=== PATIENT | female | born 1950 | race Caucasian/White ===

== ENCOUNTER 2017-06-19 23:55 | Emergency (ER) | payer BC, MEDICARE ==
[2017-06-20] MEDS ORDERED: Ketorolac Tromethamine 30 MG/ML VIAL ONE (00:17)
[2017-06-20] MEDS ORDERED: Fentanyl 100 MCG/2 ML VIAL ONE (00:17)
[2017-06-20] MEDS ORDERED: methylPREDNISolone Sod Succ/PF 125 MG/2 ML VIAL ONE (00:17)
== END 2017-06-20 02:20 | disposition home or self-care (01) ==
LOC: SCSER 23:55
DX: M54.42 Lumbago with sciatica, left side (principal); E66.9 Obesity, unspecified; E21.3 Hyperparathyroidism, unspecified; I10 Essential (primary) hypertension; Z85.3 Personal history of malignant neoplasm of breast
CPT/HCPCS: 96372; J1885; J2930; J3010

== ENCOUNTER 2017-07-12 14:39 | Outpatient (CLI) | payer MEDICARE, BC ==
--- NOTE | 2017-07-12 16:17 | MRI ---
MR OF THE LUMBAR SPINE WITHOUT CONTRAST 07/12/17 INDICATION: Extreme low back pain with radiation down the left leg since [place]. COMPARISON: None. FINDINGS: Bone marrow signal intensity is within normal limits. The conus is seen to terminate at L1. At L5-S1, there is an asymmetric to the left broad based disc bulge. There is facet joint degenerativ e change and loss of the disc space height inducing mild left neural foraminal narrowing. At L4-5, there is a broad based bulge with facet hypertrophy causing mild bilateral neural foraminal narrowing. At L3-4, there is a right paracentral cephalad extending disc extrusion measuring 1.9 cm on image 14 of series 5 causing mild ventral and right ventral lateral effacement of the thecal sac without defin ite nerve compression. This is superimposed on a broad based bulge causing mild neural foraminal encr oachment. At the L2-3 level, there is a broad based bulge with facet hypertrophy without appreciable central ca nal or neural foraminal narrowing. At L1-2, there is a mild broad based bulge without appreciable central canal or neural foraminal kavya rowing. At T12-L1, there is no appreciable central canal or neural foraminal narrowing. IMPRESSION: 1. Right cephalad extending paracentral disc extrusion at L3-4 causing mild effacement of the ve ntral and right ventral lateral thecal sac without definite cord compression. 2. Multilevel spondylosis of the lumbar spine with mild neural foraminal narrowing as detailed a jessica. POS: [facility]
== END 2017-07-12 14:40 | disposition home or self-care (01) ==
LOC: SCSMRI 14:39
PROVIDERS: ATTEND Specialist
DX: M54.42 Lumbago with sciatica, left side (principal); M54.41 Lumbago with sciatica, right side; M43.16 Spondylolisthesis, lumbar region; M99.83 Other biomechanical lesions of lumbar region; M51.26 Other intervertebral disc displacement, lumbar region
CPT/HCPCS: 72148

== ENCOUNTER 2018-03-14 13:32 | Outpatient (CLI) | payer MEDICARE, BC ==
--- NOTE | 2018-03-14 15:44 | RAD ---
FOUR VIEWS LUMBAR SPINE: History: Back pain. M54.16 FINDINGS: AP, lateral, flexion and extension views of the lumbar spine obtained. Images demonstrate levoscoliosis centered at the L2 level. Disc space height loss is seen at L3-4 and L4-5 levels. No evidence of acute fractures or bony lesions seen. IMPRESSION: Levoscoliosis with L3-4 and L4-5 changes of spondylosis. POS: [facility]
--- NOTE | 2018-03-14 16:04 | MRI ---
MRI OF LUMBAR SPINE WITHOUT CONTRAST: 03/14/18 INDICATION: History of low back pain, M54.16. COMPARISON: Prior MR of lumbar spine dated 07/12/17. TECHNIQUE: Multiple planar and multisequence MR images were obtained of the lumbar spine without contrast. FINDINGS: At L5-S1, there is an asymmetric to the left broad based disc osteophyte complex and facet joint dege nerative changes inducing mild left neural foraminal narrowing. This is stable to the prior exam. At L4-5, there is a broad based disc osteophyte complex and facet joint degenerative change and loss of disc space height inducting mild encroachment on the neural foramina but without definite impingem ent. At L3-4 level, there is a broad based bulge. Previously seen right paracentral cephalad extending dis c extrusion has been partially resorbed. Small central protrusion remains causing mild effacement of the ventral subarachnoid space. Mild neural foraminal narrowing appears similar appearing. At L2-3, there is no appreciable central canal or neural foraminal narrowing. At L1-2, there is a mild broad based bulge without appreciable central canal or neural foraminal narr owing. At T12-L1, there is no appreciable central canal or neural foraminal narrowing. IMPRESSION: 1. Interval resorption of the right paracentral cephalad extending disc extrusion. Mild residual disc protrusion remains causing mild effacement of the subarachnoid space. 2. Mild neural foraminal narrowing at L3-4 through L4-5 appears stable. POS: [facility]
== END 2018-03-14 13:33 | disposition home or self-care (01) ==
LOC: SCSMRI 13:32
PROVIDERS: ATTEND Surgery
DX: M47.26 Other spondylosis with radiculopathy, lumbar region (principal); M51.16 Intervertebral disc disorders with radiculopathy, lumbar region; M41.9 Scoliosis, unspecified; M99.83 Other biomechanical lesions of lumbar region
CPT/HCPCS: 72120; 72148

== ENCOUNTER 2018-06-01 14:39 | Outpatient (CLI) | payer MEDICARE, BC ==
--- NOTE | 2018-06-01 19:01 | MRI ---
CERVICAL SPINE MRI WITHOUT CONTRAST 06/01/18 COMPARISON: None. HISTORY: Chronic neck pain, right shoulder pain. TECHNIQUE: Multiplanar and multisequence MR imaging of the cervical spine provided without contrast. FINDINGS: The sagittal STIR imaging demonstrates no focal area of osseous marrow edema. There is straightening of the normal cervical lordosis. The craniocervical junction appears intact. There is mild degenerative change at the atlantoaxial int erspace. C2-3: No central canal or neural foraminal stenosis. C3-4: Mild disc bulge. No significant central canal stenosis. There is uncovertebral osteophyte formation on the right with no significant neural foraminal stenosi s. C4-5: Disc space narrowing and disc desiccation and minimal disc bulge. Mild central canal stenosis. Mild bilateral facet hypertrophy with no significant neural foraminal stenosis on either side. C5-6: Disc space narrowing and disc desiccation. Mild disc bulge with partial effacement of the ventr al thecal sac and mild central canal stenosis. Anterior osteophyte formation noted. Bilateral facet and uncovertebral osteophyte formation, left greater than right. Moderate left and mi ld right neural foraminal stenosis. C6-7: Disc desiccation and mild disc bulge. No central canal stenosis. No significant neural foramina l stenosis on either side. Mild bilateral facet hypertrophy. T7-T1: Intervertebral disc height and signal intensity grossly unremarkable. No significant central c anal or neural foraminal stenosis. No focal area of abnormal signal intensity is identified within the cervical cord. IMPRESSION: Multilevel degenerative change of the cervical spine as detailed above. POS: [facility]
--- NOTE | 2018-06-04 09:05 | MRI ---
MRI RIGHT SHOULDER PERFORMED WITHOUT CONTRAST ENHANCEMENT: History: Patient fell four weeks ago and again two weeks ago, right shoulder pain. FINDINGS: Exam quality is limited due to body habitus and motion. There is a full thickness partial width supraspinatus tendon tear. The tear is retracted by approxima tely 11 mm. The AP dimension of the full thickness component of this tear is approximately retracted by as much as 17 mm. The infraspinatus tendon may have a small component of an undersurface tear invo lving its more superior fibers. The subscapularis tendon shows tendonopathy changes. The biceps tendon is normal in position within t he bicipital groove. Due to motion, labrum is difficult to assess. Inferior glenohumeral ligament is intact. AC joint shows arthritic change. IMPRESSION: Full thickness partial width supraspinatus tendon tear. No significant rotator cuff muscle atrophy no toribio. POS: [facility]
== END 2018-06-01 14:40 | disposition home or self-care (01) ==
LOC: SCSMRI 14:39
PROVIDERS: ATTEND Surgery
DX: M54.2 Cervicalgia (principal); M25.511 Pain in right shoulder; M47.812 Spondylosis without myelopathy or radiculopathy, cervical region
CPT/HCPCS: 72141

== ENCOUNTER 2019-04-09 15:42 | Inpatient (IN) | payer MEDICARE, BC ==
[~2019-04-09 15:42] MED LIST: Iopamidol-370 76% 500 ML 1 ML ONE
[2019-04-09 16:47] LABS: Hemoglobin 13.4 g/dL (12.0-16.0); Mean Corpuscular HGB CONC 32.9 g/dL (32.0-36.0); Mean Corpuscular Hemoglobin 29.6 pg (27.0-31.0); Mean Corpuscular Volume 89.8 fL (78.0-98.0); Mean Platelet Volume 8.2 fL (7.4-10.4); Platelet Count 180 thou/uL (130-400); RBC Distribution Width 13.5 % (11.5-14.5); Red Blood Cell (RBC) Count 4.52 mill/uL (4.20-5.40); White Blood Cell (WBC) Count 32.5 thou/uL (4.8-10.8)
[2019-04-09 16:52] LABS: INR-International Normal Ratio 1.2; PTT 45.4 SEC (22.9-36.1); Prothrombin Time 15.6 SEC (12.0-14.7)
[2019-04-09 17:09] LABS: Band 29 % (5-11); Lymphocytes 5 % (21-51); MDiff Complete? YES; Monocytes 4 % (0-10); Neutrophil 62 % (42-75); Platelet Morphology Comment Appears Adequate; RBC Morphology Normal; Vacuoles SLIGHT
[2019-04-09] MEDS ORDERED: HYDROcodone/Acetaminophen 7.5/325 mg Tablet ONE (17:10)
[2019-04-09 17:13] LABS: ALT (SGPT) 23 U/L (8-55); AST (SGOT) 25 U/L (5-34); Albumin 3.7 g/dL (3.4-4.8); Alkaline Phosphatase 81 U/L (40-110); Anion Gap 15 mmol/L (10-20); BUN (Urea Nitrogen) 26 mg/dL (9.8-20.1); Bilirubin, Total 0.5 mg/dL (0.2-1.2); Calc. Creatinine Clearance 0 mL/min (70-130); Carbon Dioxide 24 mmol/L (23-31); Chloride 101 mmol/L (98-107); Estimated GFR-MDRD 42; Globulin 2.7 g/dL (2.4-3.5); Glucose 112 mg/dL (80-115); Potassium 4.1 mmol/L (3.5-5.1); Protein, Total 6.4 g/dL (6.0-8.3); Sodium 136 mmol/L (136-145)
[2019-04-09 17:21] LABS: Bacteria/HPF 3+ HPF (None Seen); Bilirubin Negative (Negative); Blood, Urine Negative (Negative); Clarity Turbid (Clear); Glucose, Urine (Dipstick) Normal (Negative); Leukocyte 500 Leu/uL (Negative); Nitrite Negative (Negative); Protein, Urine (Dipstick) 30 mg/dL (Neg-Trace); Renal Epithelial 0-3 HPF (None Seen); WBC/HPF 21-50 HPF (0-3)
--- NOTE | 2019-04-09 17:30 | ULT ---
ULTRASOUND DOPPLER DUPLEX VENOUS RIGHT LOWER EXTREMITY: DATE: 04/09/2019 HISTORY: 68-year-old female with right lower extremity edema. TECHNIQUE: Grayscale, color-flow, and spectral analysis, of major veins of right lower extremity. FINDINGS: There is demonstration of blood flow with normal compressibility, of the right common femoral, profun da femoral, greater saphenous, femoral, popliteal, and posterior tibial, veins. There is edema in the superficial soft tissues of the right lower extremity, especially at the calf. There are enlarged lymph nodes in the right groin. IMPRESSION: 1. No deep venous thrombosis of right lower extremity. 2. Right leg soft tissue edema. 3. Right groin lymphadenopathy.
[2019-04-09 18:23] LABS: CKMB 3.1 ng/mL (0-6.6)
[2019-04-09] MEDS ORDERED: cefTRIAXone\\ROCEPHIN 2 GM VIAL ONE (18:23)
[2019-04-09] MEDS ORDERED: Aspirin Chewable 81 MG TAB ONE ×2 (18:23)
--- NOTE | 2019-04-09 18:28 | CT ---
CT ANGIOGRAM THORAX WITH CONTRAST: (CTA pulmonary angiogram) DATE: 04/09/2019 HISTORY: 68 year old female with chest pain TECHNIQUE: IV injection of iodinated contrast. Scan acquisition timing attempted to coincide with iodinated contrast bolus reaching maximal density in pulmonary arteries. 3-D MIP reconstructions. FINDINGS: Pulmonary thromboembolism: None. Lungs: No consolidation or edema. Pneumothorax: None. Pleural effusion: None. 6 mm calculus in left kidney. Kidneys incompletely imaged. High density material in gallbladder, either vicarious excretion of IV contrast or high density sludg e. Thoracic aorta: No aneurysm or dissection. Coronary arteries: High density material representing calcification or stent throughout LAD. Calcific ations of LCx and RCA. IMPRESSION: 1. No pulmonary thromboembolism. 2. Coronary atherosclerosis due to calcified coronary lesion.
[2019-04-09] MEDS ORDERED: Vancomycin HCl 1.25 GM in Sodium Chloride 0.9% 250 ML 250 ML IVPB ONE (19:30)
[2019-04-09 20:50] LABS: Critical Call Chem Troponin I RESULT DECREASING; Troponin I 0.324 ng/mL (< 0.028)
[2019-04-09 21:10] VITALS: BMI 38.7
--- NOTE | 2019-04-09 21:17 | HP ---
PRESENTING COMPLAINT: Weakness and chills. HISTORY OF PRESENT ILLNESS: Ms. Monika Keen is a 68-year-old female with past medical history of hypertension, previous recurrent UTIs, history of renal calculus in the past but with no previous intervention, who developed weakness, chills, but no mention of fever, exertional fatigue/shortness of breath since the last 3 days, which has been gradually worsening. She also has been having right lower quadrant abdominal pain. She was evaluated in an outside facility emergency room yesterday for the abdominal pain. She had a CT of the abdomen done with reported finding of a 2 cm right kidney mass. She was referred to Urology, which she is yet to see, and discharged home. She admits to worsening generalized weakness and fever, as well as new rash over the right lower extremity, hence presentation to the ER today. She admits to history of previous superficial DVT, for which she was on anticoagulation for about a year over 10 years ago. She admits to chronic low back pain. She states her pain now seems to be more over the right flank. She denies any nausea or vomiting. She admits to difficulty with ambulation and even ability to transfer herself independently. She denies any hematuria. She admits to foul smelling urine but no dysuria. PAST MEDICAL HISTORY: Significant for: 1. Right breast cancer with carcinoma in situ, status post lumpectomy and radiation therapy about 17 years ago. 2. Hypertension. 3. Obesity. 4. History of nephrolithiasis. 5. Prior history of recurrent UTI but not since over the last many years. 6. Self-reported history of intermittent palpitation. Spouse states she was diagnosed with intermittent fibrillation but never placed on anticoagulation. 7. History of superficial DVT, for which she was on one year of anticoagulation 7 years ago. 8. History of chronic back pain with lumbar degenerative disease. PAST SURGICAL HISTORY: Looks like breast lumpectomy. SOCIAL HISTORY: The patient resides in the community with spouse. No history of tobacco, alcohol, or illicit drug use. FAMILY HISTORY: Significant for mother with breast cancer, father with skin cancer but no history of coronary artery disease or kidney cancer. ALLERGIES: INCLUDE LATEX, MORPHINE, SULFA. HOME MEDICATIONS: Include: 1. Verapamil. 2. Aspirin. 3. Losartan. 4. Bisoprolol. 5. Tylenol. 6. Benadryl. 7. Hydrocodone. 8. [place]. REVIEW OF SYSTEMS: All system review x14 was negative except as mentioned above. PHYSICAL EXAMINATION: CURRENT VITAL SIGNS: Blood pressure of 111/63, pulse of 90, respiratory rate of 18, O2 saturation is 97% on room air. Temperature afebrile. GENERAL: Obese middle-aged female, appears older than stated age, lying in bed, not in any respiratory distress. HEAD: Atraumatic, normocephalic. Pupils equal, reactive to light. Dry oral mucosa with no mucosal patches noted. NECK: No JVD. No carotid bruit. RESPIRATORY: Good air entry bilaterally. No crepitations. No chest wall tenderness. CARDIOVASCULAR: S1, S2. Rate and rhythm regular. GI: Abdomen, markedly obese but nondistended. Tenderness over the right lower quadrant beneath the abdominal fold. No inguinal area tenderness. Mild right costovertebral tenderness noted. No suprapubic fullness. No palpable masses noted. EXTREMITIES: Trace pedal edema bilaterally but notable mild erythema extending from the mid nichols of the right lower extremity down to just above ankle area. NEUROLOGIC: The patient is alert, oriented. Cranial nerves 2 through 12 grossly intact. LABORATORY DATA: WBC 32,000, hemoglobin 13, platelet 118, neutrophils 52% with 29% bands. INR 1.2, PTT 45. Sodium 136, potassium 4.1. Troponin 0.4. BNP 411. Albumin 3.7, creatinine 1.3, BUN 26. Urinalysis shows 500 leukocyte esterase, 21-50 wbc's, 3+ bacteria. CTA shows no evidence of pulmonary embolism, 6 mm calculus of the left kidney. Rest of the kidney not able to be imaged on the view. Ultrasound of the right lower extremities shows no evidence of DVT but notable tissue edema. EKG showed normal sinus rhythm, no ST-segment changes. IMPRESSION: 1. Urinary tract infection. 2. Right lower extremity cellulitis. 3. Elevated troponin/demand-mediated ischemia. 4. Reported right renal mass. 5. Hypertension. 6. Obesity. 7. Functional debility. PLAN: 1. Urinary tract infection with marked leukocytosis, possibility of right perinephric abscess/pyelonephritis considered given marked leukocytosis. We will obtain further imaging of the kidney; unable to obtain previous. We will try to obtain a CAT scan from outlying facility. If unable, the patient may benefit from MRI of the kidneys to further rule out reported kidney mass. We will obtain urine culture. We will start the patient on empiric Levaquin coverage for now. We will consult Urology. 2. Acute renal failure, likely due to dehydration versus recent contrast exposure. We will do gentle IV fluid hydration. Follow urine electrolytes and creatinine. Follow daily BMP. We will also obtain renal consult. 3. Elevated troponin, may be due to demand-mediated ischemia given absence of chest pain as well as no EKG changes. We will obtain serial cardiac enzymes and follow. Continue beta hari, low-dose heparin for now. If worsening troponin, then we transfer to cardiac floor and consider Cardiology consult as well as a stress test. 4. Hypertension. Hold losartan for now. Continue beta hari. We will do IV hydralazine p.r.n. 5. Right lower extremity cellulitis. Follow blood culture. We will start the patient on empiric vancomycin; Pharmacy to dose. No discernible abscess to drain at this time. 6. DVT prophylaxis with subcutaneous heparin. 7. Advanced directive, the patient is full code. Total time spent in review of record, discussion with patient, counseling, as well as explanation of possible test is greater than 70 minutes. The patient and family explained in detail about the plan of care. Job ID: [id number]
[2019-04-09] MEDS ORDERED: Acetaminophen 325 MG TAB PO PRN (22:03)
[2019-04-09] MEDS ORDERED: Aspirin 81 mg Enteric Coated Tablet PO SCH (22:03)
[2019-04-09] MEDS ORDERED: hydrALAZINE 20 MG/ML VIAL SLOW IVP PRN (22:03)
[2019-04-09] MEDS ORDERED: Sodium Chloride 0.9% 1,000 ML IV SCH (22:03)
[2019-04-09 22:38] LABS: Calc. Creatinine Clearance 203 mL/min (70-130); Estimated GFR-MDRD Greater than 90
[2019-04-09] MEDS: HYDROcodone/Acetaminophen 5/325 mg Tablet PO PRN (22:39)
[2019-04-09 22:57] LABS: CKMB 0.9 ng/mL (0-6.6)
[2019-04-09] MEDS ORDERED: Diazepam 5 MG TAB PO SCH (23:15)
[2019-04-09] MEDS ORDERED: Lisinopril 20 MG TAB PO SCH (23:15)
[2019-04-10] MEDS: HYDROcodone/Acetaminophen 5/325 mg Tablet PO PRN ×6 (02:07→22:56)
[2019-04-10] MEDS: Ondansetron PF 4 MG/2 ML Vial IVP PRN ×3 (02:12→22:51)
[2019-04-10 03:26] LABS: Creatinine, Urine 105.11 mg/dL (47-110); Sodium, Urine Less than 20 mmol/L (Not Available)
[2019-04-10 05:31] LABS: Anion Gap 9 mmol/L (10-20); BUN (Urea Nitrogen) 23 mg/dL (9.8-20.1); Calc. Creatinine Clearance 116 mL/min (70-130); Calcium 7.7 mg/dL (7.8-10.44); Carbon Dioxide 24 mmol/L (23-31); Chloride 108 mmol/L (98-107); Estimated GFR-MDRD 84; Glucose 101 mg/dL (80-115); Magnesium 1.9 mg/dL (1.6-2.6); Potassium 3.3 mmol/L (3.5-5.1); Sodium 138 mmol/L (136-145)
[2019-04-10 05:33] LABS: Band 7 % (5-11); Hemoglobin 11.6 g/dL (12.0-16.0); Hypochromia SLIGHT = 6-15 cells (100X) (0-5/hpf); Lymphocytes 8 % (21-51); MDiff Complete? YES; Mean Corpuscular Hemoglobin 29.9 pg (27.0-31.0); Mean Corpuscular Volume 90.6 fL (78.0-98.0); Mean Platelet Volume 7.9 fL (7.4-10.4); Monocytes 4 % (0-10); Neutrophil 81 % (42-75); Platelet Count 176 thou/uL (130-400); Platelet Morphology Comment Appears Adequate; RBC Distribution Width 13.6 % (11.5-14.5); Red Blood Cell (RBC) Count 3.89 mill/uL (4.20-5.40); White Blood Cell (WBC) Count 18.5 thou/uL (4.8-10.8)
[2019-04-10] MEDS ORDERED: Potassium Chloride 20 MEQ TAB PO SCH (07:00)
[2019-04-10] MEDS ORDERED: Famotidine 20 MG TAB PO SCH (09:00)
[2019-04-10] MEDS ORDERED: Heparin 5,000 UNITS/ML VIAL SC SCH (09:00)
[2019-04-10] MEDS ORDERED: Aspirin 325 MG TAB PO SCH (09:00)
[2019-04-10] MEDS ORDERED: Aspirin 81 mg Enteric Coated Tablet PO SCH ×2 (09:00→16:45)
[2019-04-10] MEDS ORDERED: Prevnar 13-Val Conj/PF 0.5 ML SYRINGE IM ONE (09:00)
[2019-04-10] MEDS ORDERED: Acetylcysteine 20% 200 MG/ML 30 ML VIAL PO SCH (09:00)
--- NOTE | 2019-04-10 09:02 | CT ---
ABDOMEN CT WITH AND WITHOUT CONTRAST PELVIC CT WITH AND WITHOUT CONTRAST: COMPARISON: 04/08/2019, [facility]. TECHNIQUE: Abdomen and pelvic CT performed with and without IV contrast. Coronal reformatted images and sagittal reformatted images are submitted for interpretation. HISTORY: Evaluate for right renal mass versus abscess. The patient has cellulitis. FINDINGS: Abdomen CT: Lung bases: Chronic changes. Heart: Normal heart size. No significant pericardial fluid. Aorta: Atherosclerosis. Abdomen: Solid organs: Appropriate enhancement of the liver, spleen, pancreas and adrenal glands. Gallbladder: Unremarkable. Lymph nodes: No gastrohepatic, retrocrural or periportal lymphadenopathy. No mesenteric lymphadenopat hy. Mesentery: No mass, free air or free fluid. Anterior abdominal wall: Small abdominal wall hernia containing mesenteric fat. Alimentary canal: No evidence of bowel obstruction. Unremarkable ileocecal junction. Appendix is diff icult to appreciate. Nevertheless, no inflammation of the cecal apex. Diverticulosis in the left hemicolon. No diverticulitis. Kidneys: Noncontrast: There is minimal bilateral perinephric fat stranding. Bilateral nonobstructing intrarenal calculi. Arterial phase: Symmetric enhancement of the kidneys. There is a peripherally enhancing centrally hyp odense mass in the right lower pole pelvis. Delayed images: The mass has some filling of enhancement. On the delayed images, there is nearly homo geneous enhancement. Mass measures 2.1 x 2.1 x 2.0 cm. Additional smaller subcentimeter hypodensities are noted in the left and right renal cortex. No evidence of obstructive uropathy. Pelvic CT: Unremarkable urinary bladder. Surgically absent uterus. No pelvic mass, lymphadenopathy, f ree air or free fluid No lytic or blastic lesions in the osseous structures. IMPRESSION: Enhancing mass noted in the lower pole of the right kidney with filling in of enhancement on the abril yed images. A cystic neoplasm is favored. Abscess is a much less favored consideration given lack of inflammatory change. Results of study conveyed to Dr. Parsons via [facility] 04/10/2019 at 9:02 AM Code CR Transcribed Date/Time: 04/10/2019 9:30 AM
[2019-04-10] MEDS: Famotidine 20 MG TAB PO SCH (09:21)
[2019-04-10] MEDS: Bisoprolol Fumarate 5 MG TAB PO SCH (09:21)
[2019-04-10] MEDS: Diazepam 5 MG TAB PO SCH ×2 (09:21→20:25)
[2019-04-10] MEDS: Sodium Chloride 0.9% 1,000 ML IV SCH ×2 (10:27→17:37)
--- NOTE | 2019-04-10 11:17 | CON ---
DATE OF CONSULTATION: 04/10/2019 REASON FOR CONSULT: Possible renal mass. HISTORY OF PRESENT ILLNESS: Ms. Keen is a 68-year-old female with past medical history of hypertension, history of renal lithiasis, chronic back pain due to severe scoliosis, DJD, who presents with history of shortness of breath, fatigue, right lower extremity swelling, and generalized malaise. She has difficulty qualifying her discomfort as it is diffuse in the back due to chronic radiculopathy and scoliosis. She does not relate that there is an acute onset of right flank pain per se, however, pain in the back is somewhat diffuse and difficult to quantify. She has had no fever, however, had subjective chills with no nausea or vomiting. She denies history of gross hematuria, however, does relate foul malodorous urine, however, no dysuria. She was admitted with a white count of 32,000 and 29 bands. She has been started on Levaquin p.o. and vancomycin for right lower extremity cellulitis. As she presented with shortness of breath and swelling of her lower extremity, she was admitted to evaluate for DVT and pulmonary embolus. Workup for pulmonary embolus is negative. She apparently had a CTA of the abdomen and pelvis at [facility], which the CT demonstrated 2 cm right renal mass and was advised regarding outpatient consultation. PAST MEDICAL HISTORY: Hypertension, heart palpitations, history of breast cancer on the right in 2001, history of nephrolithiasis, obesity, history of scoliosis, chronic DJD and chronic back pain, history of superficial DVT, prior history of anticoagulation about 7 years ago per patient. PAST SURGICAL HISTORY: Lumpectomy, appendectomy in 1989, total abdominal hysterectomy in 1999. She underwent right ureteroscopy, laser lithotripsy with stent in [place] by Dr. Garcia in 2000, right lumpectomy in 2001, left retrograde stent in November 2012, left ureteroscopy, laser lithotripsy on December 2012, and subsequent stent pull on January 10, 2013. ALLERGIES: SHE IS ALLERGIC TO DULOXETINE, IBUPROFEN, LATEX, MORPHINE, NAPROXEN, HOWEVER, ABLE TO TOLERATE HYDROCODONE. REVIEW OF SYSTEMS: Ten-point review of systems as above, otherwise noncontributory. SOCIAL HISTORY: She is , at bedside. Denies tobacco abuse. PHYSICAL EXAMINATION: VITAL SIGNS: Stable at 97, 72, 18, 132/62, 93% on room air. GENERAL: The patient appears somewhat fatigued, however, cooperative to physical exam, in no acute distress. HEENT: Grossly unremarkable. HEART: Regular rate. LUNGS: Clear. ABDOMEN: Morbidly obese, protuberant. There is no gross rigidity. No rebound. No obvious CVA tenderness is appreciated. Morbidly obese abdomen. : Demonstrates no significant prolapse of concern. Atrophic vaginitis. No significant discharge appreciated. EXTREMITIES: Right lower extremity cellulitic changes of the lower extremity with lower extremity edema. No calf tenderness is appreciated. PSYCHIATRIC: Appears to be appropriate, intact. NEUROLOGIC: No gross focal deficits per se; however, her mobility is somewhat limited. PERTINENT LABORATORY AND IMAGING DATA: She was admitted with a white count of 32, hemoglobin 13, platelets 180 and 29 bands. Currently, her white count [place] antibiotic therapy [place] [id number], hemoglobin 11, platelets 176, 81 segs, resolution of bandemia. INR is 1.2, PTT is 45. Her admitting creatinine is 1.2 and is currently 0.7. Her hemoglobin A1c in December of 2016, is 5.9. UA is contaminated, 46 epithelials, 3+ bacteria, 46 rbc's, 21 to 50 wbc's, 500 leukocytes. Her prior urine culture reviewed dating back to 2012 demonstrating no significant pathogen except a beta-hemolytic Streptococcus in 2016. DIAGNOSTIC STUDIES: CT angio thorax with contrast dated 04/09, demonstrates no evidence of pulmonary embolism, evidence of coronary artery disease. Right lower extremity Doppler demonstrates no evidence of right lower extremity DVT. Lower extremity soft tissue edema and nonspecific right groin lymphadenopathy. I was able to see the CT scan with : from the [facility] 2 days ago. There are bilateral renal calculi with no evidence of hydronephrosis. There is a left 6 mm nonobstructing renal calculus. Right mid to lower pole 5 to 6 mm nonobstructing calculus. In the right mid to lower pole, there is a 1.5 x 1.4 x 2 cm renal mass. IMPRESSION: 1. Ms. Keen is a 68-year-old female with history of nephrolithiasis, prior ureteroscopy in the remote past. 2. History of hypertension. 3. Currently admitted due to right lower extremity cellulitis, responding to antibiotic regimen with improvement of leukocytosis and bandemia. 4. CT at [facility] two days ago demonstrates a renal mass. Official dictation is unable to be retrieved. Per my review, there is suspicion that this may be a renal abscess vs renal mass . followup CT for staging today ; if it is stable in size that she is responding to antibiotic regimen, it would be preferable, if there is concern regarding increased in size or interval growth. Continue vancomycin, we will transition to meropenem IV. The patient is n.p.o. until CT can be reviewed. Hold heparin, hold aspirin until CT reviewed Job ID: [id number] [facility]
[2019-04-10] MEDS ORDERED: Iopamidol-370 76% 500 ML 1 ML ONE (11:27)
[2019-04-10] MEDS: Meropenem 2 GM, Admixture Fee 1 EACH in Sodium Chloride 0.9% 100 ML IVPB SCH ×4 (11:40→20:33)
[2019-04-10] MEDS: Acetylcysteine 20% 200 MG/ML 30 ML VIAL PO SCH (11:43)
[2019-04-10] MEDS ORDERED: Polyethylene Glycol 3350 17 GM Packet PO PRN (14:53)
[2019-04-10 15:14] LABS: Creatinine, Urine 34.77 mg/dL (47-110)
--- NOTE | 2019-04-10 17:16 | CON ---
DATE OF CONSULTATION: REASON FOR CONSULTATION: Edema and proteinuria. HISTORY OF PRESENT ILLNESS: A very pleasant 68-year-old female, who presented to the hospital yesterday for weakness and chills and was noted to have a perinephric abscess. The patient does have edema and cellulitis in the lower extremities. Her creatinine was 1.2 on admission, that has improved to 0.7 today. The patient denies any headache, numbness, tingling, or weakness. Denies any nausea, vomiting, or chest pain. PAST MEDICAL HISTORY: Significant for breast cancer, hypertension, nephrolithiasis, UTI, DVT, atrial fibrillation, chronic back pain, and lumpectomy. SOCIAL HISTORY: No alcohol or drug use. FAMILY HISTORY: Negative for ESRD. ALLERGIES: REVIEWED. MEDICATIONS: Home medications list, reviewed. Hospital medications list, reviewed. REVIEW OF SYSTEMS: A 15-point review of systems was performed and was negative except for positives noted above. GENERAL: HEAD: NECK: No swelling or lumps. NOSE: No epistaxis or discharge. EYES: No diplopia or pain. RESPIRATORY: CARDIOVASCULAR: GASTROINTESTINAL: /[employer]OR: MUSCULOSKELETAL: No joint pain. NEUROPSYCHIATIC SYSTEMS: No suicidal ideation. No ideation. SKIN: Denies any rash or ulcer. CONSTITUTIONAL: No fever or chills. PHYSICAL EXAMINATION: GENERAL: The patient is awake and alert. VITAL SIGNS: Afebrile, pulse 68, breathing 16, blood pressure 132/62. GENERAL APPEARANCE AND MENTAL STATUS: Fair. HEAD/NECK: Normocephalic. Atraumatic. EYES: EOMI. No deformity. EARS: Clear. No ulcers. NOSE: Intact. No lesions. MOUTH: Clear. No discharge. THROAT: Clear. No exudate. LUNGS: Clear. No crackles. CARDIAC: S1, S2. No rub. ABDOMEN: Benign. Bowel sounds positive. GENITALIA/RECTUM: [place] absent. BACK/EXTREMITIES: Edema 0+. NEUROLOGICAL: Alert and motor intact. SKIN: LYMPHATICS: LABORATORY DATA: Reviewed. ASSESSMENT AND PLAN: 1. Acute kidney injury with chronic kidney disease, most likely due to sepsis, improved. 2. Hypertension, stable. 3. Anemia, stable. 4. Acute tubular necrosis, improved. No indication for dialysis. We will follow renal imaging. Job ID: [id number]
--- NOTE | 2019-04-10 18:09 | CON ---
DATE OF CONSULTATION: 04/10/2019 SERVICE: Nephrology. REQUESTING PHYSICIAN: Jj Son MD REASON FOR CONSULTATION: Acute kidney injury. HISTORY OF PRESENT ILLNESS: A 68-year-old female with known history of hypertension, recurrent UTI, nephrolithiasis, who was admitted due to worsening weakness and chills as well as right lower quadrant abdominal pain. The patient also reported new-onset right leg rash. On presentation to the ER, the patient was found to be febrile and further evaluation revealed features of right leg cellulitis, UTI as well as leukocytosis and tachycardia. Impression of sepsis was made and the patient was started on broad-spectrum antibiotics. The patient also was noted to have acute elevation in creatinine, necessitating Nephrology consult. The patient also had a contrast CT scan of the abdomen, hence, there is a concern for contrast-induced nephropathy. Earlier today, also, the patient had additional CT scan of the abdomen again with contrast. The patient reports some clinical improvement, but continued to have right leg pain. She denied nausea, vomiting, or change in bowel habit. PAST MEDICAL HISTORY: 1. Right breast cancer, status post lumpectomy and radiation. 2. Hypertension. 3. Obesity. 4. Nephrolithiasis. 5. Recurrent UTI. 6. Chronic back pain. PAST SURGICAL HISTORY: Lumpectomy. FAMILY HISTORY: Significant for breast cancer in mother as well as skin cancer in father. However, there is no history of coronary artery disease or kidney cancer in family. SOCIAL HISTORY: The patient lives with spouse. She smokes about a pack a day, but denied alcohol or recreational drug use. ALLERGIES: 1. DULOXETINE. 2. IBUPROFEN. 3. LATEX. 4. LEVOFLOXACIN. 5. MORPHINE. 6. NAPROSYN. 7. SULFA. MEDICATIONS: Prior to hospital, 1. Hydrocodone 5/325 q.6 p.r.n. 2. Ascorbic acid 1000 mg p.o. daily. 3. Aspirin 81 mg p.o. daily. 4. Bisoprolol 10 mg p.o. daily. 5. Diazepam 5 mg p.o. b.i.d. 6. Dorzolamide/timolol eye drop to both eyes b.i.d. 7. Lisinopril 40 mg p.o. daily at bedtime. 8. Potassium chloride 10 mEq p.o. daily. 9. Pyridoxine 100 mg p.o. daily. 10. Verapamil 240 mg p.o. b.i.d. REVIEW OF SYSTEMS: 12-point review of systems performed was negative other than pertinent positives and negatives included in the history of present illness. PHYSICAL EXAMINATION: VITAL SIGNS: Temperature 97.9, pulse 68, respiratory rate 14, SpO2 of 91% on room air, and blood pressure is 128/60. GENERAL: Obese female, in no obvious distress. Afebrile. Anicteric. Acyanotic. HEENT: Normocephalic, atraumatic. Oral mucosa is moist. NECK: Supple. Nontender. No JVD appreciated. CARDIOVASCULAR: Regular rhythm and rate with normal heart sounds one and two. RESPIRATORY: Good air entry bilaterally with no crackle, rhonchi, or use of accessory muscles. GI: Obese. Mild tenderness in right lower quadrant noted. Bowel sound is normoactive. EXTREMITIES: Right distal leg erythema and tenderness noted. Other extremities are grossly normal looking and atraumatic. CREDIT RELATIONSHIP MANAGER: Conscious, alert, oriented x3 with appropriate mental status. Cranial nerves 2 through 12 are grossly intact. DIAGNOSTIC DATA: CBC on presentation showed WBC count of 32.5, hemoglobin of 13.4, MCV of 89.8, and platelets of 180. Repeat CBC today showed WBC of 18.5, hemoglobin of 11.6, and platelets of 176. BMP today showed sodium 138, potassium 3.3, chloride 108, CO2 of 24, BUN 23, creatinine 0.7, glucose 101, calcium 7.7. On presentation yesterday, sodium was 136, potassium 4.1, chloride 101, CO2 of 24, BUN 26, creatinine 1.27, glucose 112. Urinalysis on presentation showed to be urine with pH of 5.0, specific gravity of 1.029, negative ketone, blood, nitrite, and bilirubin, however, leukocyte esterase was elevated at 500 mg/dL. Microscopy showed 4 to 6 rbc and 21 to 50 wbc with 3+ bacteria. Urine electrolytes showed creatinine 105, sodium less than 20, and random protein 12 mg/dL. CT scan of the chest and abdomen angio with contrast showed no pulmonary embolism. Coronary atherosclerosis due to calcified coronary lesions was noted. 6 mm left renal calculus was noted as well as high-density material in the gallbladder. Right lower extremity Doppler showed no DVT, however, right leg soft tissue edema and right groin lymphadenopathy were noted. CT scan of the abdomen with and without contrast showed enhancing mass noted in the lower pole of right kidney with feeling of enhancement on delayed images. Cystic neoplasm is favored. Abscess is much less favored consideration given lack of inflammatory changes. ASSESSMENT: 1. Acute kidney injury: Due to hemodynamic factors related to volume depletion, cytokine release, and RAAS hari use. Renal function has improved with IV fluid. However, the patient is at increased risk of contrast-induced nephropathy given recurrent exposure to contrast. We will increase IV fluid therapy to 125 mL/h. We will also give acetylcysteine to this patient . 2. Hypertension. Control is acceptable. Blood pressure is on the soft side. We will hold antihypertensives to avoid hypotension in this patient who is at increased risk of contrast-induced nephropathy. We will also avoid lisinopril and nephrotoxic agents. 3. Sepsis due to cellulitis: Treatment as per primary attending. 4. We will recheck renal function in the morning and follow closely. We will also get urine electrolytes. 5. Hypokalemia. We will replete with potassium chloride. We will also get serum magnesium level and replete if indicated. 6. Urinary tract infection. Treatment as per primary attending. 7. Nephrolithiasis: No acute issues. Urologist is following. Many thanks for involving us in the care of this patient. We will follow along with you. Job ID: [id number]
[2019-04-10] MEDS: Vancomycin HCl 1 GM in Premix Bag 1 BAG IVPB SCH (20:24)
[2019-04-10] MEDS: Saccharomyces boulardii 250 MG CAP PO SCH (20:25)
[2019-04-10] MEDS: Heparin 5,000 UNITS/ML VIAL SC SCH (20:26)
[2019-04-10] MEDS: DorzolamidE/Timolol 2%/0.5% Ophth Soln 10 ml Bottle EA EYE SCH (20:26)
[2019-04-10] MEDS: Latanoprost 0.005% Ophth Soln 2.5 ml Bottle EA EYE SCH (20:32)
[2019-04-10] MEDS: Senokot S 8.6-50 MG TAB PO SCH (20:34)
[2019-04-10] MEDS ORDERED: Senokot S 8.6-50 MG TAB PO SCH (21:00)
[2019-04-10] MEDS ORDERED: Lisinopril 20 MG TAB PO SCH ×2 (21:00)
--- NOTE | 2019-04-10 23:00 | CON ---
DATE OF CONSULTATION: 04/10/2019 REASON FOR CONSULTATION: Sepsis and findings in the imaging study of abdomen associated with cellulitis. HISTORY OF PRESENT ILLNESS: A 68-year-old who has a history of prior superficial vein thrombosis in the lower extremities, not deep vein thrombosis as stated in one of the notes on admission, who developed sudden onset of chills the day of admission, initially went to [facility] and had a CT of abdomen, which was prompted because of tenderness on palpation of the left side of her abdomen. The findings showed some concern with a mass in the left renal pelvis. This may have been a serendipitous finding. Nonetheless, the focus of the patient's symptoms were localized to the right lower extremity with erythema and marked tenderness. The patient was transferred and admitted to [facility] and started on antimicrobial therapy. Dr. Parsons has been consulted regarding the renal finding. Currently, Ms. Keen is still with pain in the right lower extremity, but not as much as previously. She denies any headaches. She has some visual blurriness, because of glaucoma. No sore throat, odynophagia or dysphagia. No dental pain. She has chronic back pain for which she takes opioid medication. No abdominal pain. She noticed some change in the odor of her urine in the past. No diarrhea. No bleeding. No joint symptoms. PAST MEDICAL HISTORY: Paroxysmal atrial tachycardia, superficial vein thrombosis of the right lower extremity, not deep vein thrombosis only superficial, hyperparathyroidism with nephrolithiasis identified in the past, breast cancer in remission, thyroid mass, appendectomy, hysterectomy. SOCIAL HISTORY: Never smoker. FAMILY HISTORY: Noncontributory. ALLERGIES: LATEX, MORPHINE, SULFA DRUGS. CURRENT MEDICATION LIST: 1. Tylenol. 2. [place]. 3. Mucomyst. 4. Ecotrin. 5. Zebeta. 6. Valium. 7. Dorzolamide. 8. Timolol for glaucoma. 9. Pepcid. 10. Apresoline. 11. Meropenem. 12. Florastor. 13. Vancomycin. PHYSICAL EXAMINATION: VITAL SIGNS: T-max 98.2, blood pressure 140/60, pulse 78, respirations 16, O2 saturation 93. SKIN: Shows the area of erythema in the right leg with marked tenderness on palpation. No blistering. Peripheral IV access. She is voiding in the toilet. LYMPH: No lymphadenopathy. HEENT: Ocular movements conjugate. Oral cavity normal. NECK: Supple. LUNGS: Symmetric, clear breath sounds. HEART: S1 and S2, regular rate. No S3 or S4. ABDOMEN: Soft, nontender. No ascites. No bladder distention. No organomegaly. EXTREMITIES: No joint inflammatory activity. Pulses 1+ in dorsalis pedis. Moves extremities equally with some limitations, because of inflammatory process in right leg. Cognitive function appears to be intact. LABORATORY STUDIES: Urinalysis with 21 to 50 wbc's. White cell count is 32,000 with 29% bands and now is down to 18,00, hemoglobin 11, platelets are 176. Sodium was 136, creatinine 1.27 on arrival and now she is at 0.7. Liver profile within normal limits. Albumin 3.7. Microbiology with urine culture with 75 to [id number] CFUs per mL of mixed skin kina. Two sets of blood cultures thus far no growth to date. IMAGING STUDIES: There is a chest CTA with no evidence of pulmonary embolism. Abdomen and pelvis CT with enhancing mass in the lower pole of the right kidney with filling in of enhancement on delayed images. She had an ultrasound of the lower extremity, which did not show any evidence of deep vein thrombosis. There was right groin lymphadenopathy. ASSESSMENT: 1. Peripheral thrombosis and superficial vein of the lower right lower extremity. 2. Chills with cellulitis of the right leg. 3. Serendipitous finding in the left renal pelvis with a 2 cm enhancing mass. 4. Neutrophilia with bandemia. DISCUSSION: The reason for the patient's inflammatory process that led to admission is most likely the cellulitis in the right leg, the left kidney finding is probably serendipitous. Typically those lesions when they are inflammatory are quite painful, because of their sudden development. This would suggest that the mass has been enlarging more slowly. She is currently on very broad spectrum coverage. Usually I treat cellulitis with a beta-lactam such as Rocephin or cefazolin, but in this case there was a concern with the renal finding and Dr. Parsons wants to use the antimicrobial therapy as a diagnostic ancillary test in terms of the endpoint, i.e. if there is improvement then I would favor the hypothesis of a benign inflammatory process rather than malignancy. So I am not going to change the antimicrobials for this reason right now. Once she continues to see rapid improvement in the right leg findings then the subsequent management will depend on the need to establish clinical/radiological response in terms of the left kidney findings. Job ID: [id number]
[2019-04-11] MEDS: Acetylcysteine 20% 200 MG/ML 30 ML VIAL PO SCH (03:32)
[2019-04-11] MEDS: HYDROcodone/Acetaminophen 5/325 mg Tablet PO PRN ×5 (03:33→21:41)
[2019-04-11] MEDS: Sodium Chloride 0.9% 1,000 ML IV SCH ×2 (03:38→22:32)
[2019-04-11] MEDS ORDERED: Diazepam 5 MG TAB PO SCH (04:00)
[2019-04-11] MEDS: Meropenem 2 GM, Admixture Fee 1 EACH in Sodium Chloride 0.9% 100 ML IVPB SCH ×3 (04:21→21:58)
[2019-04-11] MEDS: Ondansetron PF 4 MG/2 ML Vial IVP PRN ×3 (04:33→16:04)
[2019-04-11] MEDS: Senokot S 8.6-50 MG TAB PO SCH (08:13)
[2019-04-11] MEDS: Bisoprolol Fumarate 5 MG TAB PO SCH (08:14)
[2019-04-11] MEDS: Famotidine 20 MG TAB PO SCH (08:14)
[2019-04-11] MEDS: Diazepam 5 MG TAB PO SCH ×2 (08:14→21:42)
[2019-04-11] MEDS: Heparin 5,000 UNITS/ML VIAL SC SCH (08:15)
[2019-04-11 08:17] LABS: ALT (SGPT) 23 U/L (8-55); AST (SGOT) 21 U/L (5-34); Albumin 3.5 g/dL (3.4-4.8); Alkaline Phosphatase 66 U/L (40-110); Anion Gap 15 mmol/L (10-20); BUN (Urea Nitrogen) 7 mg/dL (9.8-20.1); Bilirubin, Total 0.5 mg/dL (0.2-1.2); Calc. Creatinine Clearance 140 mL/min (70-130); Calcium 8.2 mg/dL (7.8-10.44); Carbon Dioxide 22 mmol/L (23-31); Chloride 110 mmol/L (98-107); Estimated GFR-MDRD Greater than 90; Globulin 2.6 g/dL (2.4-3.5); Glucose 95 mg/dL (80-115); Magnesium 1.7 mg/dL (1.6-2.6); Potassium 3.3 mmol/L (3.5-5.1); Protein, Total 6.1 g/dL (6.0-8.3); Sodium 144 mmol/L (136-145)
--- NOTE | 2019-04-11 08:35 | PRG ---
DATE OF SERVICE: 04/11/2019 SUBJECTIVE: The patient is having some nausea associated with pain medication. She denies chills. OBJECTIVE: VITAL SIGNS: Temperature 99, pulse 78, respirations 18, O2 sat is 91, and blood pressure 160/73. I's and O's 2040 in, 1640 out. She is 440 mL positive. ABDOMEN: Soft. No rigidity. No rebound. No flank tenderness is appreciated. EXTREMITIES: She continues to have right lower extremity edema and erythema consistent with cellulitis. IMPRESSION AND PLAN: Ms. Keen is a 68-year-old female with history of kidney stones, current admission due to right lower extremity swelling, malaise. Her CBC this morning is pending. Right endophytic renal mass. Differential diagnosis has been discussed with the patient and family extensively. Per radiologist, this is likely a small renal mass. The possibility of malignancy, a renal abscess is less favored. She does present with urine component of urinary tract infection, culture demonstrates mixed skin kina. Appreciate Infectious Disease input. From my perspective, I do agree with antibiotics. She has been responding to vancomycin, currently on meropenem. When the patient is ready to be discharged, I would recommend trial of Levaquin 750 mg p.o. x4 weeks for treatment of presumed complicated urinary tract infection. My plan is to recheck a CAT scan in 2 to 3 months to re-stage her renal mass. We have discussed options of percutaneous biopsy, surveillance, surgical exploration. Given its small size, I favor surveillance, which she agrees. She can see me as an outpatient. Job ID: [id number] MTDD
[2019-04-11] MEDS: DorzolamidE/Timolol 2%/0.5% Ophth Soln 10 ml Bottle EA EYE SCH ×2 (09:21→21:58)
--- NOTE | 2019-04-11 10:39 | PRG ---
DATE OF SERVICE: 04/11/2019 SUBJECTIVE: A 68-year-old female, being seen for acute kidney injury. The patient denies any nausea, vomiting, or chest pain. OBJECTIVE: CONSTITUTIONAL: The patient is awake and alert. VITAL SIGNS: Afebrile. Pulse 75, breathing 16, blood pressure was 141/98. GENERAL APPEARANCE AND MENTAL STATUS: Fair. HEAD/NECK: Normocephalic. Atraumatic. EYES: EOMI. No deformity. EARS: Clear. No ulcers. NOSE: Intact. No lesions. MOUTH: Clear. No discharge. THROAT: Clear. No exudate. LUNGS: Clear. No crackles. CARDIAC: S1, S2. No rub. ABDOMEN: Benign. Bowel sounds positive. GENITALIA/RECTUM: [place] absent. BACK/EXTREMITIES: Edema 0+. NEUROLOGICAL: Alert and motor intact. SKIN: LYMPHATICS: LABORATORY DATA: Reviewed. ASSESSMENT AND PLAN: 1. Chronic kidney disease, stage 1, improved. 2. Acute kidney injury due to acute tubular necrosis, resolved. 3. Hypertension, stable. 4. Hypokalemia, recommend potassium replacement of 40 mEq. I will sign off on this patient. Please reconsult as needed. Job ID: [id number]
[2019-04-11] MEDS ORDERED: Sodium Chloride 0.45% 1,000 ML IV SCH (12:00)
[2019-04-11] MEDS ORDERED: Potassium Chloride 40 MEQ in Sodium Chloride 0.45% 1,000 ML IV SCH (12:00)
[2019-04-11] MEDS ORDERED: Magnesium Sulfate 2 GM in Sodium Chloride 0.9% 100 ML IVPB SCH (12:00)
[2019-04-11] MEDS ORDERED: Potassium Chloride 10 MEQ TAB PO SCH ×2 (12:15→17:00)
[2019-04-11] MEDS ORDERED: Magnesium 2 GM/50 ML 2 GM in Premix Bag 1 BAG IVPB SCH (12:15)
[2019-04-11 12:37] LABS: #Eosinphils 0.1 thou/uL (0.0-0.7); #Lymphocytes 2.1 thou/uL (1.20-3.40); #Monocytes 0.6 thou/uL (0.11-0.59); #Neutrophils 10.1 thou/uL (1.40-6.50); %Basophils 0.2 % (0.0-1.0); %Eosinophils 0.7 % (0.0-10.0); %Lymphocytes 15.9 % (21.0-51.0); %Monocytes 4.8 % (0.0-10.0); %Neutrophils 78.4 % (42.0-75.0); Hemoglobin 12.4 g/dL (12.0-16.0); Mean Corpuscular HGB CONC 33.5 g/dL (32.0-36.0); Mean Corpuscular Hemoglobin 29.9 pg (27.0-31.0); Mean Corpuscular Volume 89.3 fL (78.0-98.0); Mean Platelet Volume 7.8 fL (7.4-10.4); Platelet Count 204 thou/uL (130-400); RBC Distribution Width 13.4 % (11.5-14.5); Red Blood Cell (RBC) Count 4.15 mill/uL (4.20-5.40); White Blood Cell (WBC) Count 12.9 thou/uL (4.8-10.8)
[2019-04-11] MEDS: Potassium Chloride 40 MEQ in Sodium Chloride 0.45% 1,000 ML IV SCH (14:16)
[2019-04-11] MEDS ORDERED: Diltiazem 125 MG in Sodium Chloride 0.9% 100 ML IVPB SCH (18:15)
--- NOTE | 2019-04-11 18:33 | CON ---
DATE OF CONSULTATION: 04/11/2019 REASON FOR CONSULTATION: AFib with RVR. HISTORY OF PRESENT ILLNESS: Ms. Keen is a very pleasant 68-year-old white female, who comes to the hospital for weakness and chills. She was diagnosed with a cellulitis of the right lower extremity as well as possibly an abscess on her kidney. She was started on IV antibiotics and her white count has continued to improve. She was doing slightly better. However, earlier today, she went into AFib with RVR. She has a history of what appears to be paroxysmal atrial fibrillation. She was given verapamil for this many years ago and she was diagnosed about 10 years ago, she feels. She was seeing a circular saw operator, but had moved to this area and has not seen him for about 10 years now. She denies any chest pain, tightness, pressure. Just sensation of not feeling well. She has had a history of DVTs in the past and was on Xarelto for about 7 years. PAST MEDICAL HISTORY: 1. 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 2. Hypertension. 3. Obesity. 4. History of nephrolithiasis. 5. Recurrent UTIs. 6. Paroxysmal atrial fibrillation. 7. History of DVTs in the past. 8. Chronic back pain with lumbar degenerative disease. PAST SURGICAL HISTORY: Lumpectomy for right breast cancer. SOCIAL HISTORY: No alcohol, tobacco, or drugs. FAMILY HISTORY: Noncontributory. OUTPATIENT MEDICATIONS: 1. Diazepam 5 mg b.i.d. 2. Lisinopril 40 mg at bedtime. 3. Dorzolamide and timolol eye drops. 4. Vitamin C. 5. Vitamin B. 6. Verapamil 240 mg b.i.d. 7. Potassium chloride 10 mEq a day. 8. Aspirin 81 a day. 9. Bisoprolol 10 mg a day. 10. Hydrocodone p.r.n. ALLERGIES: 1. CYMBALTA. 2. IBUPROFEN. 3. LATEX. 4. LEVOFLOXACIN. 5. MORPHINE. 6. NAPROXEN. 7. SULFA DRUGS. REVIEW OF SYSTEMS: A 12-point review of systems was done and was all negative unless stated in the history of present illness. PHYSICAL EXAMINATION: VITAL SIGNS: Temperature 98.5, pulse 113, respiratory rate 16, saturating 93% on room air, and blood pressure 134/92. GENERAL: Awake, alert, and oriented x3. In no distress. HEENT: Normocephalic, atraumatic. NECK: Supple. LUNGS: Clear. CARDIOVASCULAR: S1 and S2. No S3 or S4. No murmurs. ABDOMEN: Soft. Positive bowel sounds. EXTREMITIES: There is 2+ edema in the right lower extremity with severe erythema around the calf area, consistent with a history of cellulitis. LABORATORY DATA: Laboratory work was reviewed. White count on admission was 32, down to 12; hemoglobin of 12; hematocrit 37; platelet count 204. Coags; INR 1.2. Chemistries were reviewed. Potassium has been 3.3 for the last 2 days. GFR is greater than 90. Troponin initially was 0.4, down to 0.3, now 0.14. UA was turbid with leukocyte esterase, 21 to 50 white cells, and 3+ bacteria. ASSESSMENT AND PLAN: 1. Gal-[id number] myocardial infarction, demand ischemia. 2. Paroxysmal atrial fibrillation, currently in rapid ventricular response. Likely related to low potassium and septic-type state. 3. Lower extremity cellulitis. 4. Enhancing lesion on the kidney, suggestive of either an inflammatory response versus an abscess. No plans from urology standpoint to do any invasive interventions for now. Plan is to see if it responds to antibiotics. 5. CHADS-VASc score of 3 for female, hypertension, and age above 65. PLAN: 1. Secondary to her CHADS score, recommendation is to do full anticoagulation for stroke prophylaxis. At this time because there is a possibility that she may need something drain in her kidney, we will plan on doing on doing Lovenox full dose subcu b.i.d. If there are no plans for surgical intervention before discharge, we will plan on switching her to either Eliquis 5 b.i.d. or Xarelto 20 mg a day. 2. No evidence of an acute coronary syndrome. Her non-STEMI is most likely type 2 demand ischemia. No indication for further therapies in this regard. 3. Echocardiogram is pending. 4. Lower extremity cellulitis, being treated per Primary Team. Dr. Bruce is on board as well. Thank you for letting us participate in the care of your patient. We will follow. Job ID: [id number]
[2019-04-11 19:51] LABS: Vancomycin, Trough 2.6 ug/mL
[2019-04-11] MEDS ORDERED: Enoxaparin Sodium 80 MG/0.8 ML SYRINGE SC SCH (21:00)
[2019-04-11] MEDS: Saccharomyces boulardii 250 MG CAP PO SCH (21:42)
[2019-04-11] MEDS: Vancomycin HCl 1 GM in Premix Bag 1 BAG IVPB SCH (21:43)
[2019-04-11] MEDS: Latanoprost 0.005% Ophth Soln 2.5 ml Bottle EA EYE SCH (21:58)
[2019-04-12] MEDS: HYDROcodone/Acetaminophen 5/325 mg Tablet PO PRN ×5 (01:57→21:48)
[2019-04-12 05:00] LABS: #Basophils 0.1 thou/uL (0.0-0.2); #Eosinphils 0.2 thou/uL (0.0-0.7); #Lymphocytes 2.3 thou/uL (1.20-3.40); #Monocytes 0.7 thou/uL (0.11-0.59); #Neutrophils 4.9 thou/uL (1.40-6.50); %Basophils 0.7 % (0.0-1.0); %Eosinophils 2.6 % (0.0-10.0); %Lymphocytes 28.3 % (21.0-51.0); %Monocytes 8.1 % (0.0-10.0); %Neutrophils 60.3 % (42.0-75.0); Hemoglobin 12.4 g/dL (12.0-16.0); Mean Corpuscular HGB CONC 32.5 g/dL (32.0-36.0); Mean Corpuscular Hemoglobin 28.9 pg (27.0-31.0); Mean Corpuscular Volume 88.9 fL (78.0-98.0); Mean Platelet Volume 7.8 fL (7.4-10.4); Platelet Count 211 thou/uL (130-400); RBC Distribution Width 13.2 % (11.5-14.5); Red Blood Cell (RBC) Count 4.29 mill/uL (4.20-5.40); White Blood Cell (WBC) Count 8.2 thou/uL (4.8-10.8)
[2019-04-12 05:11] LABS: ALT (SGPT) 24 U/L (8-55); AST (SGOT) 21 U/L (5-34); Albumin 3.5 g/dL (3.4-4.8); Alkaline Phosphatase 61 U/L (40-110); Anion Gap 10 mmol/L (10-20); BUN (Urea Nitrogen) 5 mg/dL (9.8-20.1); Bilirubin, Total 0.5 mg/dL (0.2-1.2); Calc. Creatinine Clearance 154 mL/min (70-130); Calcium 8.3 mg/dL (7.8-10.44); Carbon Dioxide 28 mmol/L (23-31); Chloride 106 mmol/L (98-107); Estimated GFR-MDRD Greater than 90; Globulin 2.7 g/dL (2.4-3.5); Glucose 88 mg/dL (80-115); Magnesium 1.9 mg/dL (1.6-2.6); Potassium 3.1 mmol/L (3.5-5.1); Protein, Total 6.2 g/dL (6.0-8.3); Sodium 141 mmol/L (136-145)
[2019-04-12] MEDS: Vancomycin 1.5 GRAM/300 ML BAG 1.5 GM in Premix Bag 1 BAG IVPB SCH ×2 (05:32→17:38)
[2019-04-12] MEDS: Meropenem 2 GM, Admixture Fee 1 EACH in Sodium Chloride 0.9% 100 ML IVPB SCH ×3 (06:32→20:33)
--- NOTE | 2019-04-12 07:22 | PDOC.HOSPP ---
- Subjective Encounter Date: 04/11/19 Encounter Time: 11:30 Subjective: Patient seen and examined for Sepsis. Palpitations since last night. No CP. Feels gen weak. No new complaints. No overnight events - Objective Vital Signs & Weight: Vital Signs (12 hours) Temp Pulse Resp BP Pulse Ox 04/12/19 03:53 98 F 133 H 16 137/66 94 L 04/12/19 00:00 105 H 18 129/74 Weight Weight 205 lb 5 oz I&O: 04/11/19 04/12/19 04/13/19 06:59 06:59 06:59 Intake Total 1920 6595 Output Total 1050 5400 Balance 870 1195 Result Diagrams: 04/12/19 04:28 04/12/19 04:28 EKG Reviewed by me: Yes (Tele Afib) Hospitalist ROS - Review of Systems Respiratory: denies: cough, dry, shortness of breath, hemoptysis, SOB with excertion, pleuritic pain, sputum, wheezing, other Cardiovascular: denies: chest pain, palpitations, orthopnea, paroxysmal noc. dyspnea, edema, light headedness, other - Medication Medications: Active Medications Generic Name Dose Route Start Last Admin Trade Name Freq PRN Reason Stop Dose Admin Hydrocodone Bitart/Acetaminophen 1 tab 04/09/19 22:03 04/12/19 06:33 [place] 5/325 PO 1 tab Q4H PRN Administration Moderate Pain (4-6) Bisoprolol Fumarate 10 mg 04/10/19 09:00 04/11/19 08:14 Zebeta PO 10 mg DAILY JUNIOR Administration Diazepam 5 mg 04/10/19 09:00 04/11/19 21:42 Valium PO 5 mg BID JUNIOR Administration Dorzolamide/Timolol 1 drop 04/10/19 21:00 04/11/19 21:58 Cosopt 2-0.5% Ophth Soln EA EYE 1 drop BID JUNIOR Administration Enoxaparin Sodium 90 mg 04/11/19 21:00 04/11/19 21:40 Lovenox SC 90 mg 0900,2100 JUNIOR Administration Famotidine 20 mg 04/10/19 09:00 04/11/19 08:14 Pepcid PO 20 mg 0900 JUNIOR Administration Meropenem 2 gm/ Miscellaneous 100 mls @ 200 mls/hr 04/10/19 12:00 04/12/19 06 :32 Medication 1 each/ Sodium IVPB 100 mls Chloride 0400,1200,2000 JUNIOR Administration Potassium Chloride 40 meq/ 1,020 mls @ 50 mls/hr 04/11/19 12:04 04/11/19 14: 16 Sodium Chloride IV 1,020 mls .[id number] JUNIOR Administration Diltiazem HCl 125 mg/ Sodium 125 mls @ 5 mls/hr 04/11/19 18:15 04/11/19 19:01 Chloride IVPB 125 mls INF JUNIOR Administration Protocol 5 MG/HR Vancomycin HCl 1.5 gm/ Device 300 mls @ 200 mls/hr 04/12/19 06:00 04/12/19 05 :32 IVPB 300 mls 0600,1800 JUNIOR Administration Latanoprost 1 drop 04/10/19 21:00 04/11/19 21:58 Xalatan 0.005% Ophth Soln EA EYE 1 drop HS JUNIOR Administration Ondansetron HCl 4 mg 04/09/19 22:03 04/11/19 16:04 Zofran IVP 4 mg Q6H PRN Administration Nausea/Vomiting Saccharomyces Boulardii 250 mg 04/10/19 21:00 04/11/19 21:42 Florastor PO 250 mg HS JUNIOR Administration Sodium Chloride 10 ml 04/10/19 09:00 04/11/19 21:58 Flush - Normal Saline IVF 10 ml Q12HR JUNIOR Administration - Exam General Appearance: NAD Heart: no gallops, irregular Respiratory: no wheezes, no rales Gastrointestinal: soft, non-tender, normal bowel sounds Extremities: no cyanosis Neurological: no new deficit Hosp A/P - Plan DVT proph w/SCDs Severe Sepsis due to RLE Cellulitis UTI Afib with RVR Renal mass Obesity BMI 38.8 Hypokalemia/Hypomagnesemia YARY Type 2 IA Chronic pain syndrome Anxiety PLAN: Cont Vanc/Meropenem Cont Verapamil Cardiology consultation Await Echo Cont other meds as above
--- NOTE | 2019-04-12 07:38 | PRG ---
DATE OF SERVICE: 04/12/2019 SUBJECTIVE: Patient resting, at bedside. Denies significant flank pain. OBJECTIVE: VITAL SIGNS: Temperature 98, heart rate 133 16, 94, blood pressure 137/66. Is and Os, she is 6595 in, 5400 . She is positive 1.2 L. Oral intake adequate at 2.7 L. ABDOMEN: Soft, morbidly obese. No rigidity. No rebound. No CVA tenderness appreciated. EXTREMITIES: Persistent right lower extremity erythema consistent with cellulitis and edema. LABORATORY STUDIES: 1. White count has decreased from admission from 56588 to 8.2, hemoglobin 12, and platelet 211. No significant shift or bandemia noted. Renal function stable with creatinine of 0.53. She did have an elevated troponin of 0.146. Cardiology consult and input noted. 2. Blood culture negative. Urine culture demonstrating mixed kina. IMPRESSION AND PLAN: 1. Ms. Keen is a 68-year-old female with history of renal calculi. 2. Recent CAT scan demonstrating nonobstructing bilateral renal calculi. 3. Right lower pole renal mass, incidental, per radiologist unlikely that it is a renal abscess. She is been fully informed regarding differential diagnosis of small renal malignancy. 4. Non-ST myocardial infarction, new onset atrial fibrillation. Appreciate Cardiology consult and input. I did speak with Dr. Iglesias yesterday, okay for anticoagulation as there are no plans for acute surgical intervention or percutaneous drainage or biopsy. She is currently on meropenem and vancomycin. Previous Infectious Disease consult noted and appreciated. From urologic perspective when patient is ready to be discharged. will empirically treat her for complicated UTI. She has a followup appointment with me in few weeks. Plan to repeat CT scan interval for staging of her right lower pole renal mass found incidentally. I anticipate patient will be in-house over the weekend as she is being anticoagulated due to new onset atrial fibrillation. No acute further intervention is warranted. [facility] covering me for p.r.n. issues for this patient if needed. If she is still in-house on Monday, will recheck her status. I informed the patient regarding followup appointment. Apparently she had severe nausea with Levaquin. If it is okay with infectious disease, recommend Omnicef as outpatient. Would recommend course of antibiotic regimen for 4 weeks total. Job ID: [id number] [facility]
[2019-04-12] MEDS: Famotidine 20 MG TAB PO SCH ×2 (08:15→21:48)
[2019-04-12] MEDS: Bisoprolol Fumarate 5 MG TAB PO SCH (08:15)
[2019-04-12] MEDS: Potassium Chloride 10 MEQ TAB PO SCH ×4 (08:15→17:38)
[2019-04-12] MEDS: DorzolamidE/Timolol 2%/0.5% Ophth Soln 10 ml Bottle EA EYE SCH ×2 (08:16→22:00)
[2019-04-12] MEDS: Enoxaparin Sodium 100 MG/ML SYRINGE SC SCH ×2 (08:16→20:36)
[2019-04-12] MEDS: Diazepam 5 MG TAB PO SCH ×2 (08:16→21:45)
[2019-04-12] MEDS ORDERED: Loperamide HCl 2 MG CAP PO PRN (08:38)
[2019-04-12] MEDS: Saccharomyces boulardii 250 MG CAP PO SCH ×2 (09:23→21:46)
[2019-04-12] MEDS: Ondansetron PF 4 MG/2 ML Vial IVP PRN ×2 (09:24→20:33)
[2019-04-12] MEDS: Potassium Chloride 40 MEQ in Sodium Chloride 0.45% 1,000 ML IV SCH (12:46)
--- NOTE | 2019-04-12 12:52 | PDOC.CPN ---
- Subjective Date: 04/12/19 Time: 12:49 Interval history: She is doing well. She is in afib but rate controlled. - Review of Systems General: denies: fever/chills, weight/appetite/sleep changes, night sweats, fatigue Respiratory: denies: cough, congestion, shortness of breath, exercise intolerance Cardiovascular: denies: chest pain, palpitation, edema, paroxysmal nocturnal dyspnea, orthopnea Gastrointestinal: denies: nausea, vomiting, diarrhea, constipation, abd pain, GI bleeding Musculoskeletal: reports: pain. denies: tenderness, stiffness, swelling, arthritis/arthralgias Neurological: denies: numbness, syncope, seizure, weakness - Objective Allergies/Adverse Reactions: Allergies Allergy/AdvReac Type Severity Reaction Status Date / Time duloxetine [From Cymbalta] Allergy Anxiety Verified 04/09/19 21:07 ibuprofen Allergy Verified 04/09/19 21:07 latex Allergy Rash Verified 04/09/19 21:07 levofloxacin [From Levaquin] Allergy Nausea Verified 04/10/19 14:57 morphine Allergy Nausea Verified 04/09/19 21:07 naproxen Allergy Verified 04/09/19 21:07 Sulfa (Sulfonamide Allergy Hives Verified 04/09/19 21:07 Antibiotics) Visit Medications: Current Medications Acetaminophen (Tylenol) 650 mg PO Q4H PRN PRN Reason: Headache/Fever/Mild Pain (1-3) Hydrocodone Bitart/Acetaminophen ([place] 5/325) 1 tab PO Q4H PRN PRN Reason: Moderate Pain (4-6) Last Admin: 04/12/19 06:33 Dose: 1 tab Bisoprolol Fumarate (Zebeta) 10 mg PO DAILY [facility] Last Admin: 04/12/19 08:15 Dose: 10 mg Diazepam (Valium) 5 mg PO BID [facility] Last Admin: 04/12/19 08:16 Dose: 5 mg Dorzolamide/Timolol (Cosopt 2-0.5% Ophth Soln) 1 drop EA EYE BID [facility] Last Admin: 04/12/19 08:16 Dose: 1 drop Enoxaparin Sodium (Lovenox) 90 mg SC 0900,2100 [facility] Last Admin: 04/12/19 08:16 Dose: 90 mg Famotidine (Pepcid) 20 mg PO 0900 [facility] Last Admin: 04/12/19 08:15 Dose: 20 mg Hydralazine HCl (Apresoline) 10 mg SLOW IVP Q4H PRN PRN Reason: Blood Pressure Meropenem 2 gm/ Miscellaneous Medication 1 each/ Sodium Chloride 100 mls @ 200 mls/hr IVPB 0400,1200,2000 [facility] Last Admin: 04/12/19 12:44 Dose: 100 mls Potassium Chloride 40 meq/ (Sodium Chloride) 1,020 mls @ 50 mls/hr IV .[id number] [facility] Last Admin: 04/12/19 12:46 Dose: 1,020 mls Diltiazem HCl 125 mg/ Sodium (Chloride) 125 mls @ 5 mls/hr IVPB INF [facility]; Protocol Last Admin: 04/11/19 19:01 Dose: 125 mls Vancomycin HCl 1.5 gm/ Device 300 mls @ 200 mls/hr IVPB 0600,1800 [facility] Last Admin: 04/12/19 05:32 Dose: 300 mls Latanoprost (Xalatan 0.005% Oph Soln) 1 drop EA EYE HS [facility] Last Admin: 04/11/19 21:58 Dose: 1 drop Loperamide HCl (Imodium) 2 mg PO PRN PRN PRN Reason: Diarrhea/Loose Stools Miscellaneous Medication (Pharmacy To Dose) 1 each IVPB ONE PRN PRN Reason: Pharmacy to dose Stop: 05/09/19 22:04 Ondansetron HCl (Zofran) 4 mg IVP Q6H PRN PRN Reason: Nausea/Vomiting Last Admin: 04/12/19 09:24 Dose: 4 mg Polyethylene Glycol (Miralax) 17 gm PO DAILYPRN PRN PRN Reason: Constipation Potassium Chloride (Klor-Con 10) 20 meq PO TID-[facility] Last Admin: 04/12/19 12:44 Dose: 20 meq Saccharomyces Boulardii (Florastor) 250 mg PO BID [facility] Last Admin: 04/12/19 09:23 Dose: 250 mg Sodium Chloride (Flush - Normal Saline) 10 ml IVF Q12HR [facility] Last Admin: 04/12/19 08:17 Dose: Not Given Sodium Chloride (Flush - Normal Saline) 10 ml IVF PRN PRN PRN Reason: Saline Flush Vital Signs & Weight: Vital Signs Temp Pulse Resp BP Pulse Ox 04/12/19 11:50 98.3 F 120 H 18 161/97 H 94 L 04/12/19 07:00 98.3 F 120 H 18 160/86 H 93 L 04/12/19 03:53 98 F 133 H 16 137/66 94 L Weight 205 lb 5 oz - Physical Exam General: alert & oriented x3, no apparent distress HEENT: normocephaly Neck: supple neck Cardiac: regular rate and rhythm, no murmur Lungs: clear to auscultation Neuro: grossly intact Abdomen: active bowel sounds, soft, non-tender Extremities: 1+ LE edema Musculoskeletal: no pain - Labs Result Diagrams: 04/12/19 04:28 04/12/19 04:28 Troponin/CKMB CK-MB (CK-2) 0.9 ng/mL (0-6.6) 04/09/19 21:56 Troponin I 0.146 ng/mL (< 0.028) H 04/09/19 21:56 - Telemetry Supraventricular conduction: atrial fibrillation - Assessment/Plan Assessment/Plan: 1. Paroxysmal afib. 2. LE cellulitis 3. NSTEMI, demand ischemia 4. CHADs VASc Score of 3 5. 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 PLAN: - Conitnue Diltiazem dirp. - Will add Flecainide as her LV function is normal - If she remains in afib on Monday will plan on DERIAN/Cardioversion. - Continue full dose lovenox for stroke prophylaxis and will eventually transition to Xarelto before discharge if no surgical intervention planned for her renal mass which is though to be possible abscess but is being treated medically for now.
[2019-04-12] MEDS ORDERED: Potassium Chloride 20 MEQ TAB PO SCH (13:30)
[2019-04-12] MEDS ORDERED: Potassium Chloride 10 MEQ TAB PO SCH (13:45)
[2019-04-12] MEDS: Diltiazem 125 MG in Sodium Chloride 0.9% 100 ML IVPB SCH (16:12)
--- NOTE | 2019-04-12 20:09 | PDOC.HOSPP ---
- Subjective Encounter Date: 04/12/19 Encounter Time: 12:30 Subjective: Patient seen and examined for Sepsis/New onset Afib. Feels better. Nausea improving. No diarrhea. No new complaints. No overnight events - Objective Vital Signs & Weight: Vital Signs (12 hours) Temp Pulse Resp BP Pulse Ox 04/12/19 16:00 98.9 F 114 H 18 139/76 93 L 04/12/19 11:50 98.3 F 120 H 18 161/97 H 94 L Weight Weight 205 lb 5 oz I&O: 04/11/19 04/12/19 04/13/19 06:59 06:59 06:59 Intake Total 1920 6595 2950 Output Total 1050 5400 3000 Balance 870 1195 -50 Result Diagrams: 04/12/19 04:28 04/12/19 04:28 EKG Reviewed by me: Yes (Tele Afib) Hospitalist ROS - Review of Systems Constitutional: reports: weakness, malaise. denies: fever, chills, sweats, other Gastrointestinal: denies: nausea, vomiting, abdominal pain, diarrhea, constipation, melena, hematochezia, other Genitourinary: denies: dysuria, frequency, incontinence, hematuria, retention, other - Medication Medications: Active Medications Generic Name Dose Route Start Last Admin Trade Name Freq PRN Reason Stop Dose Admin Hydrocodone Bitart/Acetaminophen 1 tab 04/09/19 22:03 04/12/19 17:38 [place] 5/325 PO 1 tab Q4H PRN Administration Moderate Pain (4-6) Diazepam 5 mg 04/10/19 09:00 04/12/19 08:16 Valium PO 5 mg BID JUNIOR Administration Dorzolamide/Timolol 1 drop 04/10/19 21:00 04/12/19 08:16 Cosopt 2-0.5% Ophth Soln EA EYE 1 drop BID JUNIOR Administration Enoxaparin Sodium 90 mg 04/12/19 09:00 04/12/19 08:16 Lovenox SC 90 mg 0900,2100 JUNIOR Administration Meropenem 2 gm/ Miscellaneous 100 mls @ 200 mls/hr 04/10/19 12:00 04/12/19 12 :44 Medication 1 each/ Sodium IVPB 100 mls Chloride 0400,1200,2000 JUNIOR Administration Potassium Chloride 40 meq/ 1,020 mls @ 50 mls/hr 04/11/19 12:04 04/12/19 12: 46 Sodium Chloride IV 1,020 mls .[id number] JUNIOR Administration Vancomycin HCl 1.5 gm/ Device 300 mls @ 200 mls/hr 04/12/19 06:00 04/12/19 17 :38 IVPB 300 mls 0600,1800 JUNIOR Administration Diltiazem HCl 125 mg/ Sodium 125 mls @ 10 mls/hr 04/12/19 13:18 04/12/19 16: 12 Chloride IVPB 125 mls INF JUNIOR Administration Protocol 10 MG/HR Latanoprost 1 drop 04/10/19 21:00 04/11/19 21:58 Xalatan 0.005% Ophth Soln EA EYE 1 drop HS JUNIOR Administration Loperamide HCl 2 mg 04/12/19 08:38 04/12/19 13:59 Imodium PO 2 mg PRN PRN Administration Diarrhea/Loose Stools Ondansetron HCl 4 mg 04/09/19 22:03 04/12/19 09:24 Zofran IVP 4 mg Q6H PRN Administration Nausea/Vomiting Potassium Chloride 20 meq 04/12/19 08:00 04/12/19 17:38 Klor-Con 10 PO 20 meq TID-WM JUNIOR Administration Saccharomyces Boulardii 250 mg 04/12/19 09:00 04/12/19 09:23 Florastor PO 250 mg BID JUNIOR Administration Sodium Chloride 10 ml 04/10/19 09:00 04/12/19 08:17 Flush - Normal Saline IVF Not Given Q12HR JUNIOR - Exam General Appearance: NAD Heart: no gallops, irregular Respiratory: no wheezes, no rales Gastrointestinal: soft, non-distended Extremities: 1+ LE edema Extremities - other findings: RLE erythema improving Hosp A/P - Plan plan discussed w/ family, DVT proph w/lovenox Severe Sepsis due to RLE Cellulitis UTI Afib with RVR - on Cardizem drip/Anticoagulation Renal mass Obesity BMI 38.8 Hypokalemia/Hypomagnesemia 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
[2019-04-12] MEDS ORDERED: Famotidine 20 MG TAB PO SCH (21:00)
[2019-04-12] MEDS: Flecainide 50 MG TAB PO SCH (21:45)
[2019-04-12] MEDS: Metoprolol Tartrate 50 MG TAB PO SCH (21:47)
[2019-04-12] MEDS: Latanoprost 0.005% Ophth Soln 2.5 ml Bottle EA EYE SCH (22:01)
[2019-04-13] MEDS: HYDROcodone/Acetaminophen 5/325 mg Tablet PO PRN ×6 (01:49→22:50)
[2019-04-13] MEDS: Ondansetron PF 4 MG/2 ML Vial IVP PRN ×2 (01:49→10:22)
[2019-04-13] MEDS: Diltiazem 125 MG in Sodium Chloride 0.9% 100 ML IVPB SCH ×2 (03:00→12:42)
[2019-04-13] MEDS: Meropenem 2 GM, Admixture Fee 1 EACH in Sodium Chloride 0.9% 100 ML IVPB SCH ×3 (03:59→20:35)
[2019-04-13 05:32] LABS: #Basophils 0.1 thou/uL (0.0-0.2); #Eosinphils 0.4 thou/uL (0.0-0.7); #Lymphocytes 2.7 thou/uL (1.20-3.40); #Monocytes 0.7 thou/uL (0.11-0.59); #Neutrophils 4.4 thou/uL (1.40-6.50); %Basophils 0.8 % (0.0-1.0); %Lymphocytes 32.5 % (21.0-51.0); %Monocytes 8.5 % (0.0-10.0); %Neutrophils 53.2 % (42.0-75.0); Hemoglobin 13.2 g/dL (12.0-16.0); Mean Corpuscular HGB CONC 32.9 g/dL (32.0-36.0); Mean Corpuscular Hemoglobin 29.2 pg (27.0-31.0); Mean Corpuscular Volume 88.7 fL (78.0-98.0); Mean Platelet Volume 7.8 fL (7.4-10.4); Platelet Count 252 thou/uL (130-400); RBC Distribution Width 13.3 % (11.5-14.5); Red Blood Cell (RBC) Count 4.52 mill/uL (4.20-5.40); White Blood Cell (WBC) Count 8.3 thou/uL (4.8-10.8)
[2019-04-13] MEDS: Vancomycin 1.5 GRAM/300 ML BAG 1.5 GM in Premix Bag 1 BAG IVPB SCH ×2 (05:48→18:24)
[2019-04-13 05:54] LABS: ALT (SGPT) 23 U/L (8-55); AST (SGOT) 19 U/L (5-34); Albumin 3.5 g/dL (3.4-4.8); Alkaline Phosphatase 63 U/L (40-110); Anion Gap 11 mmol/L (10-20); BUN (Urea Nitrogen) 6 mg/dL (9.8-20.1); Bilirubin, Total 0.4 mg/dL (0.2-1.2); Calc. Creatinine Clearance 154 mL/min (70-130); Calcium 8.8 mg/dL (7.8-10.44); Carbon Dioxide 27 mmol/L (23-31); Chloride 107 mmol/L (98-107); Estimated GFR-MDRD Greater than 90; Globulin 2.7 g/dL (2.4-3.5); Glucose 104 mg/dL (80-115); Potassium 3.4 mmol/L (3.5-5.1); Protein, Total 6.2 g/dL (6.0-8.3); Sodium 142 mmol/L (136-145)
[2019-04-13] MEDS: Potassium Chloride 40 MEQ in Sodium Chloride 0.45% 1,000 ML IV SCH ×2 (05:54→17:04)
[2019-04-13] MEDS: Saccharomyces boulardii 250 MG CAP PO SCH ×2 (10:20→20:36)
[2019-04-13] MEDS: Famotidine 20 MG TAB PO SCH ×2 (10:20→20:36)
[2019-04-13] MEDS: Diazepam 5 MG TAB PO SCH ×2 (10:20→20:36)
[2019-04-13] MEDS: Metoprolol Tartrate 50 MG TAB PO SCH ×2 (10:20→20:36)
[2019-04-13] MEDS: Potassium Chloride 10 MEQ TAB PO SCH ×3 (10:20→17:04)
[2019-04-13] MEDS: Flecainide 50 MG TAB PO SCH ×2 (10:21→20:36)
[2019-04-13] MEDS: Enoxaparin Sodium 100 MG/ML SYRINGE SC SCH ×2 (10:22→20:36)
[2019-04-13] MEDS: DorzolamidE/Timolol 2%/0.5% Ophth Soln 10 ml Bottle EA EYE SCH ×2 (10:23→20:43)
--- NOTE | 2019-04-13 14:53 | PDOC.CPN ---
- Subjective Date: 04/13/19 Time: 14:59 Interval history: The pt seen and examined. No overnight events. No cardiac complaints. - Objective Allergies/Adverse Reactions: Allergies Allergy/AdvReac Type Severity Reaction Status Date / Time duloxetine [From Cymbalta] Allergy Anxiety Verified 04/09/19 21:07 ibuprofen Allergy Verified 04/09/19 21:07 latex Allergy Rash Verified 04/09/19 21:07 levofloxacin [From Levaquin] Allergy Nausea Verified 04/10/19 14:57 morphine Allergy Nausea Verified 04/09/19 21:07 naproxen Allergy Verified 04/09/19 21:07 Sulfa (Sulfonamide Allergy Hives Verified 04/09/19 21:07 Antibiotics) Visit Medications: Current Medications Acetaminophen (Tylenol) 650 mg PO Q4H PRN PRN Reason: Headache/Fever/Mild Pain (1-3) Hydrocodone Bitart/Acetaminophen ([place] 5/325) 1 tab PO Q4H PRN PRN Reason: Moderate Pain (4-6) Last Admin: 04/13/19 14:45 Dose: 1 tab Diazepam (Valium) 5 mg PO BID [facility] Last Admin: 04/13/19 10:20 Dose: 5 mg Dorzolamide/Timolol (Cosopt 2-0.5% Ophth Soln) 1 drop EA EYE BID [facility] Last Admin: 04/13/19 10:23 Dose: 1 drop Enoxaparin Sodium (Lovenox) 90 mg SC 0900,2100 [facility] Last Admin: 04/13/19 10:22 Dose: 90 mg Famotidine (Pepcid) 20 mg PO BID [facility] Last Admin: 04/13/19 10:20 Dose: 20 mg Flecainide Acetate (Tambocor) 50 mg PO Q12HR [facility] Last Admin: 04/13/19 10:21 Dose: 50 mg Hydralazine HCl (Apresoline) 10 mg SLOW IVP Q4H PRN PRN Reason: Blood Pressure Meropenem 2 gm/ Miscellaneous Medication 1 each/ Sodium Chloride 100 mls @ 200 mls/hr IVPB 0400,1200,2000 [facility] Last Admin: 04/13/19 12:42 Dose: 100 mls Potassium Chloride 40 meq/ (Sodium Chloride) 1,020 mls @ 50 mls/hr IV .[id number] [facility] Last Admin: 04/13/19 05:54 Dose: Not Given Vancomycin HCl 1.5 gm/ Device 300 mls @ 200 mls/hr IVPB 0600,1800 [facility] Last Admin: 04/13/19 05:48 Dose: 300 mls Diltiazem HCl 125 mg/ Sodium (Chloride) 125 mls @ 10 mls/hr IVPB INF [facility]; Protocol Last Admin: 04/13/19 12:42 Dose: 125 mls Latanoprost (Xalatan 0.005% Oph Soln) 1 drop EA EYE HS [facility] Last Admin: 04/12/19 22:01 Dose: 1 drop Loperamide HCl (Imodium) 2 mg PO PRN PRN PRN Reason: Diarrhea/Loose Stools Last Admin: 04/12/19 13:59 Dose: 2 mg Metoprolol Tartrate (Lopressor) 50 mg PO BID [facility] Last Admin: 04/13/19 10:20 Dose: 50 mg Miscellaneous Medication (Pharmacy To Dose) 1 each IVPB ONE PRN PRN Reason: Pharmacy to dose Stop: 05/09/19 22:04 Ondansetron HCl (Zofran) 4 mg IVP Q6H PRN PRN Reason: Nausea/Vomiting Last Admin: 04/13/19 10:22 Dose: 4 mg Polyethylene Glycol (Miralax) 17 gm PO DAILYPRN PRN PRN Reason: Constipation Potassium Chloride (Klor-Con 10) 20 meq PO TID-[facility] Last Admin: 04/13/19 12:42 Dose: 20 meq Saccharomyces Boulardii (Florastor) 250 mg PO BID [facility] Last Admin: 04/13/19 10:20 Dose: 250 mg Sodium Chloride (Flush - Normal Saline) 10 ml IVF Q12HR [facility] Last Admin: 04/13/19 10:22 Dose: Not Given Sodium Chloride (Flush - Normal Saline) 10 ml IVF PRN PRN PRN Reason: Saline Flush Vital Signs & Weight: Vital Signs Temp Pulse Resp BP BP BP Pulse Ox 04/13/19 11:55 131/93 H 127/84 04/13/19 11:30 98.2 F 115 H 18 127/84 94 L 04/13/19 10:16 98.0 F 106 H 16 131/76 93 L 04/13/19 04:00 98.8 F 97 20 128/76 97 Weight 194 lb 8 oz - Physical Exam General: alert & oriented x3 HEENT: mucus membranes moist Neck: supple neck Cardiac: regular rate and rhythm, S1/S2 Lungs: clear to auscultation, decreased breath sounds Neuro: cranial nerve 2-12 intact - Labs Result Diagrams: 04/13/19 04:56 04/13/19 04:56 Troponin/CKMB CK-MB (CK-2) 0.9 ng/mL (0-6.6) 04/09/19 21:56 Troponin I 0.146 ng/mL (< 0.028) H 04/09/19 21:56 - Telemetry Sinus rhythms and dysrhythmias: sinus rhythm - Assessment/Plan Assessment/Plan: 1. Paroxysmal afib with RVR with CHADs VASc Score of 3- converted back to SR at 1415 on 04/13/2019; On Diltiazem 10mg/hr, Flecainide 50mg BID, Lovenox BID and Metoprolol 50mg BID; cont. to monitor; will eventually transition to Xarelto before discharge if no surgical intervention planned for her renal mass which is though to be possible abscess but is being treated medically for now. 2. Severe Sepsis due to RLE Cellulitis 3. NSTEMI, demand ischemia 2/2 Afib with RVR - asymptomatic 4. 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 5. UTI 6. anxiety MAR reviewed Pt. seen and eval. by me. I agree with the A/P by the REVENUE MANAGER. Chest clear. RRR. gjmays
[2019-04-13] MEDS ORDERED: Labetalol HCl 100 MG/20 ML VIAL SLOW IVP PRN (15:56)
[2019-04-13 17:58] LABS: Vancomycin, Trough 15.8 ug/mL
[2019-04-13] MEDS: Latanoprost 0.005% Ophth Soln 2.5 ml Bottle EA EYE SCH (20:44)
[2019-04-14] MEDS: HYDROcodone/Acetaminophen 5/325 mg Tablet PO PRN ×5 (03:48→20:29)
[2019-04-14] MEDS: Ondansetron PF 4 MG/2 ML Vial IVP PRN ×3 (04:02→15:18)
[2019-04-14] MEDS: Meropenem 2 GM, Admixture Fee 1 EACH in Sodium Chloride 0.9% 100 ML IVPB SCH ×2 (04:03→12:18)
[2019-04-14] MEDS: Diltiazem 125 MG in Sodium Chloride 0.9% 100 ML IVPB SCH ×3 (04:09→23:02)
[2019-04-14 04:58] LABS: #Basophils 0.1 thou/uL (0.0-0.2); #Eosinphils 0.7 thou/uL (0.0-0.7); #Lymphocytes 4.2 thou/uL (1.20-3.40); #Monocytes 0.8 thou/uL (0.11-0.59); #Neutrophils 4.5 thou/uL (1.40-6.50); %Basophils 0.6 % (0.0-1.0); %Eosinophils 6.5 % (0.0-10.0); %Monocytes 7.7 % (0.0-10.0); %Neutrophils 44.2 % (42.0-75.0); Hemoglobin 15.1 g/dL (12.0-16.0); Mean Corpuscular HGB CONC 32.2 g/dL (32.0-36.0); Mean Corpuscular Hemoglobin 28.9 pg (27.0-31.0); Mean Corpuscular Volume 89.6 fL (78.0-98.0); Platelet Count 323 thou/uL (130-400); RBC Distribution Width 13.5 % (11.5-14.5); Red Blood Cell (RBC) Count 5.23 mill/uL (4.20-5.40); White Blood Cell (WBC) Count 10.2 thou/uL (4.8-10.8)
[2019-04-14 05:14] LABS: Anion Gap 15 mmol/L (10-20); BUN (Urea Nitrogen) 7 mg/dL (9.8-20.1); Calc. Creatinine Clearance 131 mL/min (70-130); Calcium 9.2 mg/dL (7.8-10.44); Carbon Dioxide 23 mmol/L (23-31); Chloride 107 mmol/L (98-107); Estimated GFR-MDRD Greater than 90; Glucose 115 mg/dL (80-115); Magnesium 1.9 mg/dL (1.6-2.6); Potassium 3.9 mmol/L (3.5-5.1); Sodium 141 mmol/L (136-145)
[2019-04-14] MEDS: Vancomycin 1.5 GRAM/300 ML BAG 1.5 GM in Premix Bag 1 BAG IVPB SCH (06:26)
[2019-04-14] MEDS: Potassium Chloride 10 MEQ TAB PO SCH ×2 (08:43→16:48)
[2019-04-14] MEDS: Enoxaparin Sodium 100 MG/ML SYRINGE SC SCH ×2 (08:44→20:34)
[2019-04-14] MEDS: Diazepam 5 MG TAB PO SCH ×3 (08:44→21:17)
[2019-04-14] MEDS: Famotidine 20 MG TAB PO SCH ×2 (08:45→20:34)
[2019-04-14] MEDS: Metoprolol Tartrate 50 MG TAB PO SCH (08:45)
[2019-04-14] MEDS: Saccharomyces boulardii 250 MG CAP PO SCH ×2 (08:45→20:33)
[2019-04-14] MEDS: Flecainide 50 MG TAB PO SCH ×2 (08:45→20:33)
--- NOTE | 2019-04-14 08:53 | PDOC.HOSPP ---
- Subjective Encounter Date: 04/13/19 Encounter Time: 10:00 Subjective: Patient seen and examined for Sepsis/Afib. Remains in Afib - on Cardizem drip. No new complaints. No overnight events - Objective Vital Signs & Weight: Vital Signs (12 hours) Temp Pulse Resp BP Pulse Ox 04/14/19 07:55 98.0 F 126 H 17 135/79 93 L 04/14/19 04:00 97.6 F 111 H 20 149/100 H 92 L 04/14/19 00:00 107 H 130/85 Weight Weight 195 lb 8 oz I&O: 04/13/19 04/14/19 04/15/19 06:59 06:59 06:59 Intake Total 4450 2313 Output Total 5000 3500 Balance -550 -4315 Result Diagrams: 04/14/19 04:23 04/14/19 04:23 EKG Reviewed by me: Yes (Tele Afib) Hospitalist ROS - Review of Systems Respiratory: denies: cough, dry, shortness of breath, hemoptysis, SOB with excertion, pleuritic pain, sputum, wheezing, other Cardiovascular: denies: chest pain, palpitations, orthopnea, paroxysmal noc. dyspnea, edema, light headedness, other Gastrointestinal: denies: nausea, vomiting, abdominal pain, diarrhea, constipation, melena, hematochezia, other - Medication Medications: Active Medications Generic Name Dose Route Start Last Admin Trade Name Freq PRN Reason Stop Dose Admin Hydrocodone Bitart/Acetaminophen 1 tab 04/09/19 22:03 04/14/19 08:06 [place] 5/325 PO 1 tab Q4H PRN Administration Moderate Pain (4-6) Diazepam 5 mg 04/10/19 09:00 04/13/19 20:36 Valium PO 5 mg BID JUNIOR Administration Dorzolamide/Timolol 1 drop 04/10/19 21:00 04/13/19 20:43 Cosopt 2-0.5% Ophth Soln EA EYE 1 drop BID JUNIOR Administration Enoxaparin Sodium 90 mg 04/12/19 09:00 04/13/19 20:36 Lovenox SC 90 mg 0900,2100 JUNIOR Administration Famotidine 20 mg 04/12/19 21:00 04/13/19 20:36 Pepcid PO 20 mg BID JUNIOR Administration Flecainide Acetate 50 mg 04/12/19 21:00 04/13/19 20:36 Tambocor PO 50 mg Q12HR JUNIOR Administration Meropenem 2 gm/ Miscellaneous 100 mls @ 200 mls/hr 04/10/19 12:00 04/14/19 04 :03 Medication 1 each/ Sodium IVPB 100 mls Chloride 0400,1200,2000 JUNIOR Administration Vancomycin HCl 1.5 gm/ Device 300 mls @ 200 mls/hr 04/12/19 06:00 04/14/19 06 :26 IVPB 300 mls 0600,1800 JUNIOR Administration Diltiazem HCl 125 mg/ Sodium 125 mls @ 10 mls/hr 04/12/19 13:18 04/14/19 04: 09 Chloride IVPB 125 mls INF JUNIOR Administration Protocol Potassium Chloride 40 meq/ 1,020 mls @ 30 mls/hr 04/13/19 15:49 04/13/19 17: 04 Sodium Chloride IV 1,020 mls .Q24H JUNIOR Administration Latanoprost 1 drop 04/10/19 21:00 04/13/19 20:44 Xalatan 0.005% Ophth Soln EA EYE 1 drop HS JUNIOR Administration Loperamide HCl 2 mg 04/12/19 08:38 04/12/19 13:59 Imodium PO 2 mg PRN PRN Administration Diarrhea/Loose Stools Metoprolol Tartrate 50 mg 04/12/19 21:00 04/13/19 20:36 Lopressor PO 50 mg BID JUNIOR Administration Ondansetron HCl 4 mg 04/09/19 22:03 04/14/19 04:02 Zofran IVP 4 mg Q6H PRN Administration Nausea/Vomiting Potassium Chloride 20 meq 04/12/19 08:00 04/13/19 17:04 Klor-Con 10 PO 20 meq TID-WM JUNIOR Administration Saccharomyces Boulardii 250 mg 04/12/19 09:00 04/13/19 20:36 Florastor PO 250 mg BID JUNIOR Administration Sodium Chloride 10 ml 04/10/19 09:00 04/13/19 21:02 Flush - Normal Saline IVF Not Given Q12HR JUNIOR - Exam General Appearance: NAD Heart: no gallops, irregular Respiratory: no rales, no ronchi Gastrointestinal: soft, non-tender, normal bowel sounds Extremities: no cyanosis Extremities - other findings: RLE erythema improving Neurological: no new deficit Hosp A/P - Plan DVT proph w/SCDs Severe Sepsis due to RLE Cellulitis UTI Afib with RVR - on Cardizem drip/Anticoagulation/Flecainide Renal mass Obesity BMI 38.8 Hypokalemia/Hypomagnesemia 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
[2019-04-14] MEDS: DorzolamidE/Timolol 2%/0.5% Ophth Soln 10 ml Bottle EA EYE SCH ×2 (09:50→20:39)
--- NOTE | 2019-04-14 15:35 | PRG ---
DATE OF SERVICE: 04/14/2019 SUBJECTIVE: Pain is reduced by 40% in the right leg. No other issues, specifically no respiratory symptoms or abdominal pain. Voiding without difficulty. No diarrhea. OBJECTIVE: VITAL SIGNS: Temperature has been normal, BP 120/90, pulse 106, respirations 18, and O2 saturation 94. GENERAL: Appears in no distress. Awake and oriented. LUNGS: Clear. HEART: S1 and S2. Regular rate. ABDOMEN: Soft and not distended. EXTREMITIES: Right leg still with moderate inflammation, but quite tender, somewhat out of proportion of the extent of the erythema. LABORATORY DATA: White cell count is at 10.2, hemoglobin 15, and platelets 323 with normal differential. Chemistry with normal findings. Blood cultures, no growth. She had an echo, which showed 55% to 60% ejection fraction. ASSESSMENT AND DISCUSSION: 1. Paroxysmal atrial fibrillation with rapid ventricular response. 2. [id number] myocardial infarction due to demand ischemia. 3. Enhancing mass in the right kidney. 4. Sepsis due to right lower extremity cellulitis, likely due to group A, group B, or C Streptococcus. Currently on meropenem and could be transitioned to Rocephin. Discontinue meropenem and vancomycin. I believe that the cellulitis is clearly the reason for her admission and complications noted except for the right kidney finding, which is probably a serendipitous. Job ID: [id number]
--- NOTE | 2019-04-14 16:14 | PDOC.HOSPP ---
- Subjective Encounter Date: 04/14/19 Encounter Time: 16:12 Subjective: Patient seen and examined for Sepsis/Afib. No fever/diarrhea. No new complaints. No overnight events - Objective Vital Signs & Weight: Vital Signs (12 hours) Temp Pulse Resp BP Pulse Ox 04/14/19 15:37 97.6 F 107 H 18 134/71 94 L 04/14/19 11:45 97.3 F L 106 H 18 126/92 H 94 L 04/14/19 07:55 98.0 F 126 H 17 135/79 92 L Weight Weight 195 lb 8 oz I&O: 04/13/19 04/14/19 04/15/19 06:59 06:59 06:59 Intake Total 4450 2313 Output Total 5000 3500 Balance -550 -4473 Result Diagrams: 04/14/19 04:23 04/14/19 04:23 EKG Reviewed by me: Yes (Tele Afib ) Hospitalist ROS - Review of Systems Respiratory: denies: cough, dry, shortness of breath, hemoptysis, SOB with excertion, pleuritic pain, sputum, wheezing, other Cardiovascular: denies: chest pain, palpitations, orthopnea, paroxysmal noc. dyspnea, edema, light headedness, other - Medication Medications: Active Medications Generic Name Dose Route Start Last Admin Trade Name Freq PRN Reason Stop Dose Admin Hydrocodone Bitart/Acetaminophen 1 tab 04/09/19 22:03 04/14/19 12:14 [place] 5/325 PO 1 tab Q4H PRN Administration Moderate Pain (4-6) Dorzolamide/Timolol 1 drop 04/10/19 21:00 04/14/19 09:50 Cosopt 2-0.5% Ophth Soln EA EYE 1 drop BID JUNIOR Administration Enoxaparin Sodium 90 mg 04/12/19 09:00 04/14/19 08:44 Lovenox SC 90 mg 0900,2100 JUNIOR Administration Famotidine 20 mg 04/12/19 21:00 04/14/19 08:45 Pepcid PO 20 mg BID JUNIOR Administration Flecainide Acetate 50 mg 04/12/19 21:00 04/14/19 08:45 Tambocor PO 50 mg Q12HR JUNIOR Administration Meropenem 2 gm/ Miscellaneous 100 mls @ 200 mls/hr 04/10/19 12:00 04/14/19 12 :18 Medication 1 each/ Sodium IVPB 100 mls Chloride 0400,1200,2000 JUNIOR Administration Vancomycin HCl 1.5 gm/ Device 300 mls @ 200 mls/hr 04/12/19 06:00 04/14/19 06 :26 IVPB 300 mls 0600,1800 JUNIOR Administration Diltiazem HCl 125 mg/ Sodium 125 mls @ 10 mls/hr 04/12/19 13:18 04/14/19 13: 28 Chloride IVPB 125 mls INF JUNIOR Administration Protocol Potassium Chloride 40 meq/ 1,020 mls @ 30 mls/hr 04/13/19 15:49 04/13/19 17: 04 Sodium Chloride IV 1,020 mls .Q24H JUNIOR Administration Latanoprost 1 drop 04/10/19 21:00 04/13/19 20:44 Xalatan 0.005% Ophth Soln EA EYE 1 drop HS JUNIOR Administration Loperamide HCl 2 mg 04/12/19 08:38 04/12/19 13:59 Imodium PO 2 mg PRN PRN Administration Diarrhea/Loose Stools Metoprolol Tartrate 50 mg 04/12/19 21:00 04/14/19 08:45 Lopressor PO 50 mg BID JUNIOR Administration Ondansetron HCl 4 mg 04/09/19 22:03 04/14/19 15:18 Zofran IVP 4 mg Q6H PRN Administration Nausea/Vomiting Saccharomyces Boulardii 250 mg 04/12/19 09:00 04/14/19 08:45 Florastor PO 250 mg BID JUNIOR Administration Sodium Chloride 10 ml 04/10/19 09:00 04/14/19 08:45 Flush - Normal Saline IVF 10 ml Q12HR JUNIOR Administration - Exam General Appearance: NAD Heart: no gallops, irregular Respiratory: CTAB, no rales Gastrointestinal: soft, non-distended Extremities: no cyanosis Hosp A/P - Plan DVT proph w/lovenox Severe Sepsis due to RLE Cellulitis UTI Afib with RVR - on Cardizem drip/Anticoagulation/Flecainide Renal mass Obesity BMI 38.8 Hypokalemia/Hypomagnesemia YARY Type 2 CT Chronic pain syndrome Anxiety PLAN: Add PO Cardizem - I confirmed with Cardiology Replace Magnessium Cont Cardizem drip with Fleicainide Change Vancomycin/Meropenem to Rocephin per ID Cont other meds Pain control DC Cardioversion in AM Change IV Atbx to PO Vantin at dc per ID
[2019-04-14] MEDS: Potassium Chloride 40 MEQ in Sodium Chloride 0.45% 1,000 ML IV SCH (16:25)
--- NOTE | 2019-04-14 16:56 | PDOC.CPN ---
- Subjective Interval history: The pt seen and examined. No overnight events. No cardiac complaints. - Objective Allergies/Adverse Reactions: Allergies Allergy/AdvReac Type Severity Reaction Status Date / Time duloxetine [From Cymbalta] Allergy Anxiety Verified 04/09/19 21:07 ibuprofen Allergy Verified 04/09/19 21:07 latex Allergy Rash Verified 04/09/19 21:07 levofloxacin [From Levaquin] Allergy Nausea Verified 04/10/19 14:57 morphine Allergy Nausea Verified 04/09/19 21:07 naproxen Allergy Verified 04/09/19 21:07 Sulfa (Sulfonamide Allergy Hives Verified 04/09/19 21:07 Antibiotics) Visit Medications: Current Medications Acetaminophen (Tylenol) 650 mg PO Q4H PRN PRN Reason: Headache/Fever/Mild Pain (1-3) Hydrocodone Bitart/Acetaminophen ([place] 5/325) 1 tab PO Q4H PRN PRN Reason: Moderate Pain (4-6) Last Admin: 04/14/19 16:34 Dose: 1 tab Diazepam (Valium) 5 mg PO TID [facility] Last Admin: 04/14/19 16:36 Dose: 5 mg Diltiazem HCl (Cardizem Cd) 120 mg PO NOW [facility] Stop: 04/14/19 18:30 Last Admin: 04/14/19 16:37 Dose: 120 mg Diltiazem HCl (Cardizem Cd) 120 mg PO BID [facility] Dorzolamide/Timolol (Cosopt 2-0.5% Ophth Soln) 1 drop EA EYE BID [facility] Last Admin: 04/14/19 09:50 Dose: 1 drop Enoxaparin Sodium (Lovenox) 90 mg SC 0900,2100 [facility] Last Admin: 04/14/19 08:44 Dose: 90 mg Famotidine (Pepcid) 20 mg PO BID [facility] Last Admin: 04/14/19 08:45 Dose: 20 mg Flecainide Acetate (Tambocor) 50 mg PO Q12HR [facility] Last Admin: 04/14/19 08:45 Dose: 50 mg Diltiazem HCl 125 mg/ Sodium (Chloride) 125 mls @ 10 mls/hr IVPB INF JUNIOR; Protocol Last Admin: 04/14/19 13:28 Dose: 125 mls Ceftriaxone Sodium 2 gm/ (Sodium Chloride) 100 mls @ 200 mls/hr IVPB 1800 [facility] Magnesium Sulfate 1 gm/ Sodium (Chloride) 102 mls @ 100 mls/hr IVPB NOW [facility] Stop: 04/14/19 18:30 Labetalol HCl (Normodyne) 10 mg SLOW IVP Q4H PRN PRN Reason: Systolic BP > 180 Latanoprost (Xalatan 0.005% Ophth Soln) 1 drop EA EYE HS [facility] Last Admin: 04/13/19 20:44 Dose: 1 drop Loperamide HCl (Imodium) 2 mg PO PRN PRN PRN Reason: Diarrhea/Loose Stools Last Admin: 04/12/19 13:59 Dose: 2 mg Metoprolol Tartrate (Lopressor) 50 mg PO BID [facility] Last Admin: 04/14/19 08:45 Dose: 50 mg Miscellaneous Medication (Pharmacy To Dose) 1 each IVPB ONE PRN PRN Reason: Pharmacy to dose Stop: 05/09/19 22:04 Ondansetron HCl (Zofran) 4 mg IVP Q6H PRN PRN Reason: Nausea/Vomiting Last Admin: 04/14/19 15:18 Dose: 4 mg Polyethylene Glycol (Miralax) 17 gm PO DAILYPRN PRN PRN Reason: Constipation Potassium Chloride (Klor-Con 10) 20 meq PO BID[facility] Saccharomyces Boulardii (Florastor) 250 mg PO BID [facility] Last Admin: 04/14/19 08:45 Dose: 250 mg Sodium Chloride (Flush - Normal Saline) 10 ml IVF Q12HR [facility] Last Admin: 04/14/19 08:45 Dose: 10 ml Sodium Chloride (Flush - Normal Saline) 10 ml IVF PRN PRN PRN Reason: Saline Flush Vital Signs & Weight: Vital Signs Temp Pulse Resp BP BP Pulse Ox 04/14/19 16:37 113 H 133/90 04/14/19 15:37 97.6 F 107 H 18 134/71 94 L 04/14/19 11:45 97.3 F L 106 H 18 126/92 H 94 L 04/14/19 07:55 98.0 F 126 H 17 135/79 92 L Weight 195 lb 8 oz - Labs Result Diagrams: 04/14/19 04:23 04/14/19 04:23 Troponin/CKMB CK-MB (CK-2) 0.9 ng/mL (0-6.6) 04/09/19 21:56 Troponin I 0.146 ng/mL (< 0.028) H 04/09/19 21:56 - Assessment/Plan Assessment/Plan: 1. Paroxysmal afib with RVR with CHADs VASc Score of 3- converted back to SR at 1415 on 04/13/2019, but back to afib with Diltiazem 5mg/hr; On Diltiazem 10mg/hr , Flecainide 50mg BID, Lovenox BID; Metoprolol 50mg BID was stopped and Diltiazem 120mg BID was added for hx of asthma and the pt was complaining of wheezing with Metoprolol; cont. to monitor; will eventually transition to Xarelto before discharge if no surgical intervention planned for her renal mass which is though to be possible abscess but is being treated medically for now. 2. Severe Sepsis due to RLE Cellulitis 3. NSTEMI, demand ischemia 2/2 Afib with RVR - asymptomatic 4. Enhancing mass on lower pole of right kidney. 5. UTI 6. anxiety MAR reviewed * Dr Iglesias's pt * Possible DERIAN/DCCV on 04/15/[address] Iglesias.
[2019-04-14] MEDS ORDERED: Potassium Chloride 20 MEQ TAB PO SCH (17:00)
[2019-04-14] MEDS: cefTRIAXone\\ROCEPHIN 2 GM in Sodium Chloride 0.9% 100 ML IVPB SCH (18:19)
[2019-04-14] MEDS: Latanoprost 0.005% Ophth Soln 2.5 ml Bottle EA EYE SCH (20:35)
[2019-04-15] MEDS: HYDROcodone/Acetaminophen 5/325 mg Tablet PO PRN ×5 (00:41→18:40)
[2019-04-15] MEDS: Ondansetron PF 4 MG/2 ML Vial IVP PRN ×2 (01:00→08:30)
[2019-04-15] MEDS ORDERED: Diazepam 5 MG TAB PO SCH ×2 (05:00→14:00)
[2019-04-15 05:08] LABS: Anion Gap 13 mmol/L (10-20); BUN (Urea Nitrogen) 8 mg/dL (9.8-20.1); Calc. Creatinine Clearance 129 mL/min (70-130); Carbon Dioxide 27 mmol/L (23-31); Chloride 105 mmol/L (98-107); Estimated GFR-MDRD Greater than 90; Glucose 98 mg/dL (80-115); Potassium 3.6 mmol/L (3.5-5.1); Sodium 141 mmol/L (136-145)
--- NOTE | 2019-04-15 07:44 | PRG ---
DATE OF SERVICE: 04/15/2019 SUBJECTIVE: The patient without complaints, extended family at bedside. OBJECTIVE: VITAL SINGS: Stable. She is afebrile. Urine output 2725. ABDOMEN: Morbidly obese, protuberant. No gross CVA tenderness is appreciated. EXTREMITIES: Demonstrate right lower extremity erythema has improved, resolving. PERTINENT LABORATORY DATA: White count 10, hemoglobin 15, platelet 323, creatinine 0.6. IMPRESSION AND PLAN: 1. Ms. Keen is a 68-year-old female with history of nonobstructing renal calculi. 2. Recent CT demonstrating nonobstructing bilateral renal calculi, not warranting treatment. 3. Incidental right lower pole 2 cm enhancing renal mass on observation. Plan staging CT in 2-3 month interval. 4. Admitted for right lower extremity cellulitis, resolving on meropenem, vancomycin per Infectious Disease. 5. New onset atrial fibrillation, currently on anticoagulation, planned DERIAN per review of weekend events. From urologic perspective, patient can be discharged when medically, Cardiology cleared. Has elective followup with me in April. Family updated on clinical course. will sign off. Call if questions or concerns. Job ID: [id number] [facility]
[2019-04-15] MEDS: DorzolamidE/Timolol 2%/0.5% Ophth Soln 10 ml Bottle EA EYE SCH (08:29)
[2019-04-15] MEDS: Potassium Chloride 10 MEQ TAB PO SCH ×2 (08:29→17:36)
[2019-04-15] MEDS: Flecainide 50 MG TAB PO SCH ×2 (08:30→19:50)
[2019-04-15] MEDS: Saccharomyces boulardii 250 MG CAP PO SCH (08:30)
[2019-04-15] MEDS: Enoxaparin Sodium 100 MG/ML SYRINGE SC SCH (08:30)
[2019-04-15] MEDS: Famotidine 20 MG TAB PO SCH (08:30)
[2019-04-15] MEDS: Diltiazem 125 MG in Sodium Chloride 0.9% 100 ML IVPB SCH (11:14)
--- NOTE | 2019-04-15 14:49 | PDOC.HOSPP ---
- Subjective Encounter Date: 04/15/19 Encounter Time: 10:30 Subjective: Patient seen and examined for Sepsis/Afib. Converted to SR last evening. No CP or SOB. No new complaints. No overnight events - Objective Vital Signs & Weight: Vital Signs (12 hours) Temp Pulse Resp BP Pulse Ox 04/15/19 11:17 98.0 F 73 16 138/65 91 L 04/15/19 07:55 97.3 F L 67 16 151/68 H 97 04/15/19 03:53 97.5 F L 75 18 143/69 H 95 Weight Weight 195 lb 4.8 oz I&O: 04/14/19 04/15/19 04/16/19 06:59 06:59 06:59 Intake Total 2313 1380 Output Total 3500 2750 Balance -1187 -1370 Result Diagrams: 04/14/19 04:23 04/15/19 04:29 EKG Reviewed by me: Yes (Tele SR) Hospitalist ROS - Review of Systems Respiratory: denies: cough, dry, shortness of breath, hemoptysis, SOB with excertion, pleuritic pain, sputum, wheezing, other Cardiovascular: denies: chest pain, palpitations, orthopnea, paroxysmal noc. dyspnea, edema, light headedness, other - Medication Medications: Active Medications Generic Name Dose Route Start Last Admin Trade Name Freq PRN Reason Stop Dose Admin Hydrocodone Bitart/Acetaminophen 1 tab 04/09/19 22:03 04/15/19 14:00 [place] 5/325 PO 1 tab Q4H PRN Administration Moderate Pain (4-6) Diazepam 5 mg 04/15/19 14:00 04/15/19 14:01 Valium PO 5 mg Q8HR JUNIOR Administration Diltiazem HCl 180 mg 04/15/19 09:00 04/15/19 08:29 Cardizem Cd PO 180 mg BID JUNIOR Administration Dorzolamide/Timolol 1 drop 04/10/19 21:00 04/15/19 08:29 Cosopt 2-0.5% Ophth Soln EA EYE 1 drop BID JUNIOR Administration Enoxaparin Sodium 90 mg 04/12/19 09:00 04/15/19 08:30 Lovenox SC 90 mg 0900,2100 JUNIOR Administration Famotidine 20 mg 04/12/19 21:00 04/15/19 08:30 Pepcid PO 20 mg BID JUNIOR Administration Flecainide Acetate 50 mg 04/12/19 21:00 04/15/19 08:30 Tambocor PO 50 mg Q12HR JUNIOR Administration Diltiazem HCl 125 mg/ Sodium 125 mls @ 10 mls/hr 04/12/19 13:18 04/15/19 11: 14 Chloride IVPB 125 mls INF JUNIOR Administration Protocol Ceftriaxone Sodium 2 gm/ 100 mls @ 200 mls/hr 04/14/19 18:00 04/14/19 18:19 Sodium Chloride IVPB 100 mls 1800 JUNIOR Administration Latanoprost 1 drop 04/10/19 21:00 04/14/19 20:35 Xalatan 0.005% Ophth Soln EA EYE 1 drop HS JUNIOR Administration Loperamide HCl 2 mg 04/12/19 08:38 04/12/19 13:59 Imodium PO 2 mg PRN PRN Administration Diarrhea/Loose Stools Ondansetron HCl 4 mg 04/09/19 22:03 04/15/19 08:30 Zofran IVP 4 mg Q6H PRN Administration Nausea/Vomiting Potassium Chloride 20 meq 04/14/19 17:00 04/15/19 08:29 Klor-Con 10 PO 20 meq BID-[facility] JUNIOR Administration Saccharomyces Boulardii 250 mg 04/12/19 09:00 04/15/19 08:30 Florastor PO 250 mg BID JUNIOR Administration Sodium Chloride 10 ml 04/10/19 09:00 04/15/19 08:31 Flush - Normal Saline IVF Not Given Q12HR JUNIOR Sodium Chloride 10 ml 04/10/19 08:38 04/15/19 01:00 Flush - Normal Saline IVF 10 ml PRN PRN Administration Saline Flush - Exam General Appearance: NAD Heart: RRR, no gallops Respiratory: no wheezes, no rales Gastrointestinal: soft, non-distended, normal bowel sounds Extremities: no cyanosis Extremities - other findings: RLE erythema improving Hosp A/P - Plan Severe Sepsis due to RLE Cellulitis UTI Afib with RVR - converted to SR last evening - on Cardizem drip/Anticoagulation/ Flecainide Renal mass - Pt to f/u with Dr Eng next month Obesity BMI 38.8 Hypokalemia/Hypomagnesemia - replaced YARY - improving Type 2 [place] Chronic pain syndrome Anxiety PLAN: Increase Cardizem to 180 mg BID Cont Toprol/Flecainide Change Lovenox to Xarelto at dc - Xarelto coupon with patient Reduce Cardizem drip to 5 mg/hr at noon Cont Rocephin per ID - Change to Vantin x 4 weeks at dc Cont other meds
[2019-04-15 15:13] VITALS: TEMP 98.1
[2019-04-15 15:57] VITALS: BP 178/87
--- NOTE | 2019-04-15 16:29 | PDOC.CPN ---
- Subjective Date: 04/15/19 Time: 16:26 Interval history: She is doing [facility] better. She is in and out of afib but she is asymptomatic with this. - Review of Systems General: denies: fever/chills, weight/appetite/sleep changes, night sweats, fatigue Respiratory: denies: cough, congestion, shortness of breath, exercise intolerance Cardiovascular: denies: chest pain, palpitation, edema, paroxysmal nocturnal dyspnea, orthopnea Gastrointestinal: denies: nausea, vomiting, diarrhea, constipation, abd pain, GI bleeding Musculoskeletal: denies: pain, tenderness, stiffness, swelling, arthritis/ arthralgias Neurological: denies: numbness, syncope, seizure, weakness - Objective Allergies/Adverse Reactions: Allergies Allergy/AdvReac Type Severity Reaction Status Date / Time duloxetine [From Cymbalta] Allergy Anxiety Verified 04/09/19 21:07 ibuprofen Allergy Verified 04/09/19 21:07 latex Allergy Rash Verified 04/09/19 21:07 levofloxacin [From Levaquin] Allergy Nausea Verified 04/10/19 14:57 morphine Allergy Nausea Verified 04/09/19 21:07 naproxen Allergy Verified 04/09/19 21:07 Sulfa (Sulfonamide Allergy Hives Verified 04/09/19 21:07 Antibiotics) Visit Medications: Current Medications Acetaminophen (Tylenol) 650 mg PO Q4H PRN PRN Reason: Headache/Fever/Mild Pain (1-3) Hydrocodone Bitart/Acetaminophen ([place] 5/325) 1 tab PO Q4H PRN PRN Reason: Moderate Pain (4-6) Last Admin: 04/15/19 14:00 Dose: 1 tab Diazepam (Valium) 5 mg PO Q8HR [facility] Last Admin: 04/15/19 14:01 Dose: 5 mg Diltiazem HCl (Cardizem Cd) 180 mg PO BID [facility] Last Admin: 04/15/19 08:29 Dose: 180 mg Dorzolamide/Timolol (Cosopt 2-0.5% Ophth Soln) 1 drop EA EYE BID [facility] Last Admin: 04/15/19 08:29 Dose: 1 drop Famotidine (Pepcid) 20 mg PO BID [facility] Last Admin: 04/15/19 08:30 Dose: 20 mg Flecainide Acetate (Tambocor) 50 mg PO Q12HR [facility] Last Admin: 04/15/19 08:30 Dose: 50 mg Ceftriaxone Sodium 2 gm/ (Sodium Chloride) 100 mls @ 200 mls/hr IVPB 1800 [facility] Last Admin: 04/14/19 18:19 Dose: 100 mls Labetalol HCl (Normodyne) 10 mg SLOW IVP Q4H PRN PRN Reason: Systolic BP > 180 Latanoprost (Xalatan 0.005% Ophth Soln) 1 drop EA EYE HS [facility] Last Admin: 04/14/19 20:35 Dose: 1 drop Loperamide HCl (Imodium) 2 mg PO PRN PRN PRN Reason: Diarrhea/Loose Stools Last Admin: 04/12/19 13:59 Dose: 2 mg Ondansetron HCl (Zofran) 4 mg IVP Q6H PRN PRN Reason: Nausea/Vomiting Last Admin: 04/15/19 08:30 Dose: 4 mg Polyethylene Glycol (Miralax) 17 gm PO DAILYPRN PRN PRN Reason: Constipation Potassium Chloride (Klor-Con 10) 20 meq PO BID-[facility] Last Admin: 04/15/19 08:29 Dose: 20 meq Rivaroxaban (Xarelto) 20 mg PO 0600 [facility] Saccharomyces Boulardii (Florastor) 250 mg PO BID [facility] Last Admin: 04/15/19 08:30 Dose: 250 mg Sodium Chloride (Flush - Normal Saline) 10 ml IVF Q12HR [facility] Last Admin: 04/15/19 08:31 Dose: Not Given Sodium Chloride (Flush - Normal Saline) 10 ml IVF PRN PRN PRN Reason: Saline Flush Last Admin: 04/15/19 01:00 Dose: 10 ml Vital Signs & Weight: Vital Signs Temp Pulse Pulse Pulse Resp BP BP 04/15/19 15:12 98.1 F 73 16 04/15/19 14:09 79 72 178/87 H 149/69 H 04/15/19 11:17 98.0 F 73 16 04/15/19 07:55 97.3 F L 67 16 BP Pulse Ox 04/15/19 15:12 146/63 H 92 L 04/15/19 14:09 04/15/19 11:17 138/65 91 L 04/15/19 07:55 151/68 H 97 Weight 195 lb 4.8 oz - Physical Exam General: alert & oriented x3 HEENT: mucus membranes moist Neck: supple neck Cardiac: regular rate and rhythm Lungs: normal breath sounds Neuro: grossly intact Abdomen: active bowel sounds, soft, non-tender Extremities: no edema Skin: clear Musculoskeletal: no pain - Labs Result Diagrams: 04/14/19 04:23 04/15/19 04:29 Troponin/CKMB CK-MB (CK-2) 0.9 ng/mL (0-6.6) 04/09/19 21:56 Troponin I 0.146 ng/mL (< 0.028) H 04/09/19 21:56 - Telemetry Sinus rhythms and dysrhythmias: sinus rhythm Supraventricular conduction: atrial fibrillation - Assessment/Plan Assessment/Plan: 1. Paroxysmal afib. 2. LE cellulitis 3. NSTEMI, demand ischemia 4. CHADs VASc Score of 3 5. 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 PLAN: - PO diltiazem. - Continue flecainide at current dose and will change lovenox for xarelto. - May discharge home if she remains in sinus by 6 pm.
[2019-04-15] MEDS: cefTRIAXone\\ROCEPHIN 2 GM in Sodium Chloride 0.9% 100 ML IVPB SCH (17:36)
[2019-04-15] MEDS ORDERED: Metoprolol Tartrate 25 MG TAB PO SCH (18:30)
[2019-04-16] MEDS ORDERED: Rivaroxaban 10 MG TAB PO SCH (06:00)
--- NOTE | 2019-04-16 08:45 | DIS ---
DATE OF ADMISSION: 04/09/2019 DATE OF DISCHARGE: 04/15/2019 DISCHARGE DISPOSITION: Home. FOLLOWUP: 1. Follow up with primary care physician, Dr. Coleman Lennon in 1 week. 2. Follow up with Infectious Disease, Dr. Bruce in 2 to 3 weeks. 3. Follow up with Urology, Dr. Parsons on May 10, 2019, at 11:45 a.m.. The patient was seen and examined on the day of discharge. Please see my progress note for details. SIGNIFICANT LABORATORY DATA: 1. WBC on admission 32.5 with 29% bandemia. 2. Troponin maximum of 0.324. BNP was 411. Creatinine on admission was 1.27. 3. Blood cultures were negative. 4. Urine culture showed mixed kina. 5. CT angiogram of the chest was negative for pulmonary embolism. 6. Right lower extremity Doppler was negative for DVT. It showed right groin lymphadenopathy as well as right leg soft tissue edema. 7. CT scan of the abdomen and pelvis showed enhancing mass noted in the lower pole of the right kidney with filling in of enhancement on the delayed images. The possibility could be an abscess versus a cystic neoplasm. 8. Echocardiogram showed left ventricular ejection fraction of 55% to 60% with diastolic dysfunction, mild to moderate tricuspid regurgitation. BRIEF HOSPITAL COURSE: The patient is a 68-year-old female with hypertension, obesity, intermittent palpitations, on verapamil and bisoprolol, presented to the emergency room with generalized weakness with chills along with right lower extremity swelling. Her workup was consistent with severe sepsis secondary to right lower extremity cellulitis. She was started on broad-spectrum antibiotics. She was evaluated by Infectious Disease, Dr. Bruce. Swelling gradually improved. The patient was also diagnosed with renal mass as discussed above. The patient was evaluated by Dr. Parsons. Dr. Parsons recommended antibiotics for approximately 1 month. The patient will have repeat CT scan as outpatient. Initially, the patient was started on Levaquin. However, she developed significant nausea. She was placed on vancomycin and meropenem during this hospital stay. Dr. Bruce recommended Vantin 400 mg twice daily for approximately 1 month. During this hospital stay, the patient also developed atrial fibrillation with rapid ventricular response. She was placed on Cardizem drip. Anticoagulation was started per Dr. Iglesias. She spontaneously converted to sinus rhythm today. She has been started on Xarelto. She understands the risk associated with anticoagulation. Bisoprolol and verapamil have been discontinued. Instead, the patient will take Lopressor along with Cardizem. DISCHARGE MEDICATION: 1. Vantin 400 mg twice daily for approximately 4 weeks. 2. Flecainide 50 mg b.i.d. 3. Cardizem CD 180 mg b.i.d. 4. Metoprolol tartrate 12.5 mg b.i.d. 5. Xarelto 20 mg daily. 6. Florastor 250 mg daily. 7. The patient will continue other home medications including. a. Potassium chloride. b. Eyedrops. c. Valium. d. Vitamin C. She has been cleared by consultants for discharge. FINAL DIAGNOSES: 1. Severe sepsis due to right lower extremity cellulitis. 2. Urinary tract infection. 3. Atrial fibrillation with rapid ventricular response, converted to sinus rhythm. 4. Renal mass. The patient will follow up with Dr. Parsons. 5. Obesity with a BMI of 38.8. 6. Hypokalemia, replaced. 7. Hypomagnesemia, replaced. 8. Acute kidney injury, improved. 9. Type 2 myocardial infarction. 10. Chronic anemia. 11. Anxiety. PLAN: Plan was discussed with the patient in detail, she stated understanding. Job ID: [id number]
== END 2019-04-15 20:00 | disposition home or self-care (01) | DRG 871 ==
LOC: ERS 15:42 → 2NO 20:37
PROVIDERS: ADMIT Internal Medicine; ATTEND Internal Medicine
DX: A41.9 Sepsis, unspecified organism (principal); N17.0 Acute kidney failure with tubular necrosis; I21.A1 Myocardial infarction type 2; N39.0 Urinary tract infection, site not specified; L03.115 Cellulitis of right lower limb; E66.9 Obesity, unspecified; M51.36 Other intervertebral disc degeneration, lumbar region; N20.0 Calculus of kidney; I12.9 Hypertensive chronic kidney disease with stage 1 through stage 4 chronic kidney disease, or unspecified chronic kidney disease; F41.9 Anxiety disorder, unspecified; M41.9 Scoliosis, unspecified; E86.0 Dehydration; E21.3 Hyperparathyroidism, unspecified; D63.1 Anemia in chronic kidney disease; N18.1 Chronic kidney disease, stage 1; E87.6 Hypokalemia; R65.20 Severe sepsis without septic shock; E83.42 Hypomagnesemia; G89.4 Chronic pain syndrome; N28.89 Other specified disorders of kidney and ureter; I48.0 Paroxysmal atrial fibrillation; Z87.440 Personal history of urinary (tract) infections; Z86.718 Personal history of other venous thrombosis and embolism; Z79.01 Long term (current) use of anticoagulants; Z86.000 Personal history of in-situ neoplasm of breast; Z88.2 Allergy status to sulfonamides; Z88.5 Allergy status to narcotic agent; Z91.040 Latex allergy status; Z79.82 Long term (current) use of aspirin; Z79.899 Other long term (current) drug therapy; Z90.710 Acquired absence of both cervix and uterus; Z90.49 Acquired absence of other specified parts of digestive tract; Z88.8 Allergy status to other drugs, medicaments and biological substances; Z88.1 Allergy status to other antibiotic agents; Z68.38 Body mass index [BMI] 38.0-38.9, adult; Z88.6 Allergy status to analgesic agent
CPT/HCPCS: 36415; 36416; 71275; 74178; 80048; 80053; 80202; 81003; 81015; 82553; 82570; 83735; 83880; 84156; 84300; 84484; 85025; 85610; 85730; 87040; 87086; 93005; 93306; 94760; J0696; J1644; J1650; J2185; J2405; J3370; J3475; J3480; J3490; J7050; J7608; Q9967

== ENCOUNTER 2020-07-22 13:07 | Outpatient (CLI) | payer MEDICARE, BC ==
[2020-07-22 16:29] LABS: #Eosinphils 0.3 thou/uL (0.0-0.7); #Lymphocytes 3.1 thou/uL (1.20-3.40); #Monocytes 0.8 thou/uL (0.11-0.59); #Neutrophils 6.3 thou/uL (1.40-6.50); %Basophils 0.2 % (0.0-1.0); %Eosinophils 3.2 % (0.0-10.0); %Lymphocytes 29.5 % (21.0-51.0); %Monocytes 7.6 % (0.0-10.0); %Neutrophils 59.6 % (42.0-75.0); Hemoglobin 13.2 g/dL (12.0-16.0); Mean Corpuscular HGB CONC 31.1 g/dL (32.0-36.0); Mean Corpuscular Hemoglobin 29.3 pg (27.0-31.0); Mean Corpuscular Volume 94.2 fL (78.0-98.0); Mean Platelet Volume 7.8 fL (7.4-10.4); Platelet Count 303 thou/uL (130-400); RBC Distribution Width 16.8 % (11.5-14.5); Red Blood Cell (RBC) Count 4.51 mill/uL (4.20-5.40); White Blood Cell (WBC) Count 10.5 thou/uL (4.8-10.8)
[2020-07-22 16:36] LABS: Bacteria/HPF None Seen HPF (None Seen); Bilirubin Negative (Negative); Blood, Urine 3+ (Negative); Clarity Clear (Clear); Glucose, Urine (Dipstick) Normal (Negative); Ketone, Urine Negative (Negative); Leukocyte 75 Leu/uL (Negative); Nitrite Negative (Negative); Protein, Urine (Dipstick) 20 mg/dL (Neg-Trace); RBC/HPF Greater than 50 HPF (0-3); Specific Gravity, Urine 1.012 (1.002-1.036); Squamous Epithelial 0-3 HPF (0-3); Urobilinogen Normal mg/dL (Less than 2); WBC/HPF 21-50 HPF (0-3); pH, Urine 5.5 (5.0-9.0)
[2020-07-22 17:17] LABS: Hemoglobin A1c 5.6 % (4.0-6.0)
[2020-07-22 17:21] LABS: ALT (SGPT) 24 U/L (8-55); AST (SGOT) 20 U/L (5-34); Albumin 4.2 g/dL (3.4-4.8); Alkaline Phosphatase 64 U/L (40-110); Anion Gap 16 mmol/L (10-20); BUN (Urea Nitrogen) 12 mg/dL (9.8-20.1); Bilirubin, Total 0.6 mg/dL (0.2-1.2); CK (CPK) 32 U/L (29-168); CRP (Inflammatory) 2.76 mg/dL (= or < 0.5); Calc. Creatinine Clearance 0 mL/min (70-130); Calcium 9.6 mg/dL (7.8-10.44); Carbon Dioxide 27 mmol/L (23-31); Chloride 100 mmol/L (98-107); Globulin 2.3 g/dL (2.4-3.5); Glucose 117 mg/dL (80-115); Protein, Total 6.5 g/dL (5.8-8.1); Sodium 139 mmol/L (136-145)
== END 2020-07-22 13:08 | disposition home or self-care (01) ==
LOC: SCSRAD 13:07
PROVIDERS: ATTEND Family Medicine
DX: B94.8 Sequelae of other specified infectious and parasitic diseases (principal); M79.10 Myalgia, unspecified site; R73.01 Impaired fasting glucose; R31.0 Gross hematuria; R91.8 Other nonspecific abnormal finding of lung field; I70.0 Atherosclerosis of aorta
CPT/HCPCS: 36415; 71046; 80053; 81001; 82550; 83036; 84443; 85025; 85652; 86140; 87086